=== PATIENT | female | born 1995 | race Caucasian/White ===

== ENCOUNTER 2016-10-11 09:20 | Emergency (ER) | payer OTHER, BC ==
[~2016-10-11] VITALS: Ht 167.6 cm; Wt 88.5 kg
[~2016-10-11 09:20] MED LIST: ONDA4TAB10 PO; PANT20TA58 PO
[2016-10-11 09:28] VITALS: BP 167/93
[2016-10-11] MEDS ORDERED: TETANUS AND DIPHTHERIA TOX/PF 0.5 ML VIAL. VAX IM ONE (09:30)
--- NOTE | 2016-10-11 09:30 | PHYS DOC ---
Past History Past Medical History: No Pertinent History, GERD, Other Past Surgical History: Appendectomy, Other Smoking: Non-smoker Alcohol Use: None Drug Use: None Adult General HPI HPI This 20-year-old lady presents to history of having suffered a dog bite on the right arm. It was a provoked attack and that it was an aggressive dog and the muscle came off. She presents now with about a 1 inch horizontal laceration on the right arm -- right mid forearm. She complains of no numbness or tingling or loss of motor strength. No other injuries Review of Systems Review of Systems Constitutional: Denies fever or chills [] Eyes: Denies change in visual acuity, redness, or eye pain [] HENT: Denies nasal congestion or sore throat [] Respiratory: Denies cough or shortness of breath [] Cardiovascular: No additional information not addressed in HPI [] GI: Denies abdominal pain, nausea, vomiting, bloody stools or diarrhea [] : Denies dysuria or hematuria [] Musculoskeletal: Denies back pain or joint pain laceration to the mid right forearm measuring about 2 cm it goes across the forearm. In a horizontal fashion Integument: Denies rash however there is a laceration of the right forearm measuring about 1 inch or 2 cm Neurologic: Denies headache, focal weakness or sensory changes [] Endocrine: Denies polyuria or polydipsia [] Allergies Allergies Allergies Coded Allergies Type Severity Reaction Last Updated Verified morphine Allergy Severe Itching 10/11/15 Yes cefaclor Allergy Intermediate 12/03/14 Yes sulfur Allergy Intermediate 12/03/14 Yes Physical Exam Physical Exam Constitutional: Well developed, well nourished, no acute distress, non-toxic appearance. [] HENT: Normocephalic, atraumatic, bilateral external ears normal, oropharynx moist, no oral exudates, nose normal. [] Eyes: PERRLA, EOMI, conjunctiva normal, no discharge. [] Neck: Normal range of motion, no tenderness, supple, no stridor. [] Cardiovascular:Heart rate regular rhythm, no murmur [] Lungs & Thorax: Bilateral breath sounds clear to auscultation [] Abdomen: Bowel sounds normal, soft, no tenderness, no masses, no pulsatile masses. [] Skin: Warm, dry, no erythema, no rash. There is a laceration of the right mid forearm measuring about 2 cm. There is fat protruding from the wound. Patient has good distal neurovascular function good Sensation Back: No tenderness, no CVA tenderness. [] Extremities: No tenderness, no cyanosis, no clubbing, ROM intact, no edema. [] Neurologic: Alert and oriented X 3, normal motor function, normal sensory function, no focal deficits noted. [] Psychologic: Affect normal, judgement normal, mood normal. [] EKG EKG [] Radiology/Procedures Radiology/Procedures 1% lidocaine was locally locally infiltrated into around the dog bite of the right forearm . The laceration was then cleansed thoroughly irrigated somewhat then the laceration was loosely closed using 2 4-0 nylon sutures [] an Stepan wrap was placed in the forearm and hand and she was instructed to keep her arm elevated Impressions: 2 cm laceration of the right forearm secondary to dog bite Course & Med Decision Making Course & Med Decision Making The patient was placed on Augmentin 875 mg by mouth twice a day [] Dragon Disclaimer Dragon Disclaimer This chart was dictated in whole or in part using Voice Recognition software in a busy, high-work load, and often noisy Emergency Department environment. It may contain unintended and wholly unrecognized errors or omissions. Departure Departure: Referrals: YEHUDA ESCOBAR (PCP) Scripts Amoxicillin/Potassium Clav (AUGMENTIN 875-125 TABLET) 1 Each Tablet 1 TAB PO BID, #14 TAB Prov: PETAR PRADO MD 10/11/16 PETAR PRADO MD Oct 11, 2016 09:30
[2016-10-11] MEDS ORDERED: LIDOCAINE 1% Multi-Dose 20 ML VIAL. IJ ONE (10:00)
[2016-10-11] MEDS ORDERED: DIPHTH,PERTUSS(ACELL),TET TOX 0.5 ML DISP.SYRIN. VAX IM ONE (10:00)
[2016-10-11] MEDS ORDERED: AMOX1TAB61 PO (10:09)
[2016-10-11] MEDS ORDERED: AMOXICILLIN/K CLAV 875/125MG TABLET. PO ONE (10:20)
== END 2016-10-11 10:15 | disposition home or self-care (01) ==
LOC: ER 09:20
DX: S51.811A Laceration without foreign body of right forearm, initial encounter (principal); Z88.5 Allergy status to narcotic agent; Z88.1 Allergy status to other antibiotic agents; Z88.2 Allergy status to sulfonamides; W54.0XXA Bitten by dog, initial encounter; Y93.89 Activity, other specified; Y99.8 Other external cause status; Y92.89 Other specified places as the place of occurrence of the external cause
CPT/HCPCS: 12001; 90471; 90715; 99283-25

== ENCOUNTER → 2016-12-01 | Outpatient (CLI) | payer BC, OTHER ==
[~2016-12-01] MED LIST changes: +AMOX1TAB61 PO
--- NOTE | 2016-12-01 15:11 | RAD ---
Indication right hip pain for 2 months. No history of injury. AP view of the pelvis was obtained as well as a crosstable lateral view of the right hip. No acute or significant bony finding is seen. Significant degenerative changes are not apparent on plain films.
== END | disposition home or self-care (01) ==
LOC: DXRADRC 14:56
PROVIDERS: ATTEND Family Medicine
DX: M25.551 Pain in right hip (principal)
CPT/HCPCS: 73501

== ENCOUNTER 2017-03-09 08:09 | Emergency (ER) | payer BC ==
[~2017-03-09] VITALS: Ht 167.6 cm; Wt 89.1 kg
[2017-03-09] MEDS ORDERED: methylPREDNISolone SOD SUCC PF 40 MG/ML VIAL. IM ONE (08:45)
[2017-03-09 08:47] VITALS: BP 130/72
[2017-03-09] MEDS ORDERED: PRED-220 PO (08:52)
--- NOTE | 2017-03-09 08:52 | PHYS DOC ---
Past History Past Medical History: Other Past Surgical History: Appendectomy Smoking: Non-smoker Alcohol Use: None Drug Use: None Adult General Chief Complaint Chief Complaint: SKIN PROBLEM HPI HPI Patient is a 22 year old F who presents with itching that started last night and a hive-like rash that started this morning. She has no history of anaphylaxis and no exposure that she knows of to anything that may have precipitated an allergic reaction. She denies chest pain or shortness of breath. She does feel like she has a "funny feeling in her throat". She did recently have an ear infection which was treated with Augmentin. She finished her 7 day prescription yesterday. Review of Systems Review of Systems Constitutional: Denies fever or chills [] Eyes: Denies change in visual acuity, redness, or eye pain [] HENT: Denies nasal congestion or sore throat [] Respiratory: Denies cough or shortness of breath [] Cardiovascular: No additional information not addressed in HPI [] GI: Denies abdominal pain, nausea, vomiting, bloody stools or diarrhea [] : Denies dysuria or hematuria [] Musculoskeletal: Denies back pain or joint pain [] Integument: Negative except history of present illness Neurologic: Denies headache, focal weakness or sensory changes [] Endocrine: Denies polyuria or polydipsia [] All other systems were reviewed and found to be within normal limits, except as documented in this note. Family History Family History Noncontributory Current Medications Current Medications Medications reviewed Current Medications Medications (Trade) Dose Ordered Sig/[facility] Start Time Stop Time Status Last Admin Dose Admin Methylprednisolone Sodium Succinate (SOLU-Medrol 40MG VIAL) 60 mg 1X ONCE 03/09/17 08:45 03/09/17 08:46 DC 03/09/17 08:28 60 MG Allergies Allergies Allergies Coded Allergies Type Severity Reaction Last Updated Verified morphine Allergy Severe Itching 10/11/15 Yes cefaclor Allergy Intermediate 12/03/14 Yes sulfur Allergy Intermediate 12/03/14 Yes Physical Exam Physical Exam Constitutional: Well developed, well nourished, no acute distress, non-toxic appearance. [] HENT: Normocephalic, atraumatic Eyes: EOMI, conjunctiva normal, no discharge. [] Oral pharynx appears to have mild erythema without swelling or obvious obstruction. Nasal mucosa appears erythematous without edema. Neck: Normal range of motion, no tenderness, supple, no stridor. [] Cardiovascular:Heart rate regular rhythm, no murmur [] Lungs & Thorax: Bilateral breath sounds clear to auscultation [] Abdomen: Bowel sounds normal, soft, no tenderness, no masses, no pulsatile masses. Skin: Hives noted sporadically on the upper extremities, neck, and ears bilaterally Extremities: No tenderness, no cyanosis, no clubbing, ROM intact, no edema. [] Neurologic: Alert and oriented X 3, normal motor function, normal sensory function, no focal deficits noted. [] Psychologic: Affect normal, judgement normal, mood normal. [] Current Patient Data Vital Signs Vital Signs Date Time Temp Pulse Resp B/P (MAP) Pulse Ox O2 Delivery O2 Flow Rate FiO2 03/09/17 08:47 85 22 130/72 (91) 98 Room Air 03/09/17 08:20 98.6 EKG EKG [] Radiology/Procedures Radiology/Procedures [] Course & Med Decision Making Course & Med Decision Making Pertinent Labs and Imaging studies reviewed. (See chart for details) [] Dragon Disclaimer Dragon Disclaimer This electronic medical record was generated, in whole or in part, using a voice recognition dictation system. Departure Departure: Impression: Primary Impression: Hives Disposition: 01 HOME, SELF-CARE Condition: STABLE Referrals: YEHUDA ESCOBAR (PCP) Patient Instructions: Hives Additional Instructions: Octavia was seen in the emergency department for rash. No emergency medical condition was found on history or physical exam. Her symptoms are most consistent with hives without anaphylaxis. She was given steroids in the emergency room as well as a prescription. Education was provided regarding anaphylaxis including the potential for a second peak of symptoms. She was advised return the emergency room immediately if she develops respiratory symptoms. She is also advised follow-up with her primary care doctor as soon as possible for further management. Scripts Prednisone (PREDNISONE) 10 Mg Tablet 10 MG PO DAILY for 5 Days, #5 TAB Prov: CHAVEZ WELLINGTON MD 03/09/17 CHAVEZ WELLINGTON MD Mar 09, 2017 08:52
== END 2017-03-09 08:58 | disposition home or self-care (01) ==
LOC: ER 08:09
DX: L50.9 Urticaria, unspecified (principal); Z88.5 Allergy status to narcotic agent; Z88.1 Allergy status to other antibiotic agents; Z88.2 Allergy status to sulfonamides
CPT/HCPCS: 96372; 99283; J2920

== ENCOUNTER 2017-06-09 19:41 | Emergency (ER) | payer BC ==
[~2017-06-09] VITALS: Ht 167.6 cm; Wt 99.8 kg
[~2017-06-09 19:41] MED LIST changes: +PRED-220 PO
[2017-06-09] MEDS ORDERED: ONDANSETRON PF 4 MG/2 ML VIAL. IV ONE (21:45)
[2017-06-09] MEDS ORDERED: IV NORMAL SALINE 1,000ML 1,000 ML IV SCH (21:45)
[2017-06-09] MEDS ORDERED: FAMOTIDINE 20 MG/2 ML VIAL IVP ONE (21:45)
[2017-06-09 22:20] LABS: BASO # 0.1 x10^3/uL (0.0-0.2); BASO % 1 % (0-3); EOS # 0.1 x10^3/uL (0.0-0.7); EOS % 1 % (0-3); HEMOGLOBIN 12.3 g/dL (12.0-15.5); LYMPH # 3.2 x10^3/uL (1.0-4.8); LYMPH % 26 % (24-48); MEAN CORPUSCULAR HEMOGLOBIN 26 pg (25-35); MEAN CORPUSCULAR HGB CONC 32 g/dL (31-37); MEAN CORPUSCULAR VOLUME 79 fL (79-100); MONO # 0.9 x10^3/uL (0.0-1.1); MONO % 7 % (0-9); NEUT # 7.9 x10^3uL (1.8-7.7); NEUT % 64 % (31-73); PLATELET COUNT 267 x10^3/uL (140-400); RED CELL DISTRIBUTION WIDTH 16.2 % (11.5-14.5); WHITE BLOOD COUNT 12.2 x10^3/uL (4.0-11.0)
[2017-06-09] MEDS ORDERED: DICYCLOMINE 20 MG/2 ML AMPUL. IM ONE (22:30)
[2017-06-09 22:31] LABS: ALBUMIN 3.4 g/dL (3.4-5.0); ALBUMIN/GLOBULIN RATIO 0.8 (1.0-1.7); CALCIUM 9.2 mg/dL (8.5-10.1); CREATININE 0.9 mg/dL (0.6-1.0); GFR 76.9; POTASSIUM 3.8 mmol/L (3.5-5.1); TOTAL BILIRUBIN 0.2 mg/dL (0.2-1.0); TOTAL PROTEIN 7.6 g/dL (6.4-8.2)
[2017-06-09 22:42] LABS: BILIRUBIN,URINE NEG (NEG); CLARITY,URINE HAZY; COLOR,URINE YELLOW; GLUCOSE,URINE NEG (NEG); NITRITE,URINE NEG (NEG); UROBILINOGEN,URINE 0.2 mg/dL (0.2 mg/dL)
[2017-06-09 22:43] LABS: BACTERIA,URINE FEW /HPF (0-FEW); SQUAMOUS EPITHELIAL CELL,UR MANY /LPF
[2017-06-09 22:52] LABS: FECAL OB PT POSITIVE (NEG)
--- NOTE | 2017-06-09 23:56 | PHYS DOC ---
Past History Past Medical History: GERD, IBS, Other Past Surgical History: Appendectomy Smoking: Non-smoker Alcohol Use: None Drug Use: None Adult General Chief Complaint Chief Complaint: ABDOMINAL PAIN HPI HPI Patient is a 22 year old female who presents with complaint of abdominal pain and dark stools. Patient states that her symptoms started suddenly this evening. Over the last 2-3 hours patient has had multiple stools and states that she has been passing black stool. Patient states that she has history of GERD, IBS, and peptic ulcer disease. The patient states that her symptoms started out as typical IBS symptoms, however the patient states that after having a bowel movement the symptoms did not get any better. Patient states that she is having intermittent severe cramping abdominal pain which she describes diffusely. Patient states that her stools have appeared "dark." Patient is concerned that she may be passing blood. Patient denies lightheadedness or fever. Patient rates her pain on my evaluation as 7 out of 10 but states that it fluctuates and has been 10 out of 10. Frequently since onset of symptoms. Patient has not taken any medications to help with her symptoms at this time. Review of Systems Review of Systems Constitutional: Denies fever or chills [] Eyes: Denies change in visual acuity, redness, or eye pain [] HENT: Denies nasal congestion or sore throat [] Respiratory: Denies cough or shortness of breath [] Cardiovascular: Denies chest pain or edema[] GI: Abdominal pain, nausea, dark stools[] : Denies dysuria or hematuria [] Musculoskeletal: Denies back pain or joint pain [] Integument: Denies rash or skin lesions [] Neurologic: Denies headache, focal weakness or sensory changes [] All other systems were reviewed and found to be within normal limits, except as documented in this note. Current Medications Current Medications Current Medications Medications (Trade) Dose Ordered Sig/[facility] Start Time Stop Time Status Last Admin Dose Admin Dicyclomine HCl (Bentyl) 10 mg 1X ONCE 06/09/17 22:30 06/09/17 22:33 DC 06/09/17 22:42 10 MG Famotidine (Pepcid Vial) 20 mg 1X ONCE 06/09/17 21:45 06/09/17 21:46 DC 06/09/17 22:17 20 MG Fentanyl Citrate (Fentanyl 2ml Vial) 50 mcg PRN Q15MIN PRN 06/09/17 21:45 06/10/17 21:44 06/09/17 22:17 50 MCG Ondansetron HCl (Zofran) 4 mg 1X ONCE 06/09/17 21:45 06/09/17 21:46 DC 06/09/17 22:18 4 MG Sodium Chloride 1,000 ml @ 1,000 mls/hr Q1H 06/09/17 21:45 06/09/17 22:44 DC 06/09/17 21:45 1,000 MLS/HR Allergies Allergies Allergies Coded Allergies Type Severity Reaction Last Updated Verified morphine Allergy Severe Itching 10/11/15 Yes cefaclor Allergy Intermediate 12/03/14 Yes sulfur Allergy Intermediate 12/03/14 Yes Physical Exam Physical Exam Constitutional: Alert, afebrile, appears in moderate to severe discomfort.[] HENT: Normocephalic, atraumatic, bilateral external ears normal, oropharynx moist, no oral exudates, nose normal. [] Eyes: PERRLA, EOMI, conjunctiva normal, no discharge. [] Neck: Normal range of motion, no tenderness, supple, no stridor. [] Cardiovascular:Heart rate regular rhythm, no murmur [] Lungs & Thorax: Bilateral breath sounds clear to auscultation [] Abdomen: Bowel sounds hyperactive, soft, diffusely tender in all 4 quadrants, no masses, no pulsatile masses. Skin: Warm, dry, no erythema, no rash. [] Back: No tenderness, no CVA tenderness. [] Extremities: No tenderness, no cyanosis, no clubbing, ROM intact, no edema. [] Neurologic: Alert and oriented X 3, normal motor function, normal sensory function, no focal deficits noted. [] Current Patient Data Vital Signs Vital Signs Date Time Temp Pulse Resp B/P (MAP) Pulse Ox O2 Delivery O2 Flow Rate FiO2 06/09/17 22:47 97 19 135/70 (91) 100 Room Air 06/09/17 20:10 98.1 Lab Results Laboratory Tests Test 06/09/17 21:41 06/09/17 21:45 06/09/17 21:57 06/09/17 22:04 Stool Occult Blood Positive (NEG) Urine Collection Type Unknown Urine Color Yellow Urine Clarity Hazy Urine pH 6.0 Urine Specific [place] 1.025 Urine Protein Neg (NEG-TRACE) Urine Glucose (UA) Neg mg/dL (NEG) Urine Ketones (Stick) Neg mg/dL (NEG) Urine Blood Neg (NEG) Urine Nitrite Neg (NEG) Urine Bilirubin Neg (NEG) Urine Urobilinogen Dipstick 0.2 mg/dL (0.2 mg/dL) Urine Leukocyte Esterase Neg (NEG) Urine RBC 1-2 /HPF (0-2) Urine WBC 1-4 /HPF (0-4) Urine Squamous Epithelial Cells Many /LPF Urine Bacteria Few /HPF (0-FEW) Urine Mucus Mod /LPF White Blood Count 12.2 x10^3/uL (4.0-11.0) H Red Blood Count 4.80 x10^6/uL (3.50-5.40) Hemoglobin 12.3 g/dL (12.0-15.5) Hematocrit 38.0 % (36.0-47.0) Mean Corpuscular Volume 79 fL (79-100) Mean Corpuscular Hemoglobin 26 pg (25-35) Mean Corpuscular Hemoglobin Concent 32 g/dL (31-37) Red Cell Distribution Width 16.2 % (11.5-14.5) H Platelet Count 267 x10^3/uL (140-400) Neutrophils (%) (Auto) 64 % (31-73) Lymphocytes (%) (Auto) 26 % (24-48) Monocytes (%) (Auto) 7 % (0-9) Eosinophils (%) (Auto) 1 % (0-3) Basophils (%) (Auto) 1 % (0-3) Neutrophils # (Auto) 7.9 x10^3uL (1.8-7.7) H Lymphocytes # (Auto) 3.2 x10^3/uL (1.0-4.8) Monocytes # (Auto) 0.9 x10^3/uL (0.0-1.1) Eosinophils # (Auto) 0.1 x10^3/uL (0.0-0.7) Basophils # (Auto) 0.1 x10^3/uL (0.0-0.2) Sodium Level 140 mmol/L (136-145) Potassium Level 3.8 mmol/L (3.5-5.1) Chloride Level 104 mmol/L (98-107) Carbon Dioxide Level 26 mmol/L (21-32) Anion Gap 10 (6-14) Blood Urea Nitrogen 10 mg/dL (7-20) Creatinine 0.9 mg/dL (0.6-1.0) Estimated GFR (Cockcroft-Gault) 76.9 BUN/Creatinine Ratio 11 (6-20) Glucose Level 78 mg/dL (70-99) Calcium Level 9.2 mg/dL (8.5-10.1) Total Bilirubin 0.2 mg/dL (0.2-1.0) Aspartate Amino Transferase (AST) 21 U/L (15-37) Alanine Aminotransferase (ALT) 21 U/L (14-59) Alkaline Phosphatase 84 U/L (46-116) Total Protein 7.6 g/dL (6.4-8.2) Albumin 3.4 g/dL (3.4-5.0) Albumin/Globulin Ratio 0.8 (1.0-1.7) L Lipase 87 U/L (73-393) POC Urine HCG, Qualitative hcg negative (Negative) EKG EKG Not performed[] Radiology/Procedures Radiology/Procedures 3 view acute abdominal series interpreted by me: Nonobstructive bowel gas pattern, no free air under the diaphragm, no pulmonary infiltrates or effusions[ ] Course & Med Decision Making Course & Med Decision Making Pertinent Labs and Imaging studies reviewed. (See chart for details) The patient was given IV fluids, fentanyl, Zofran, and Bentyl. Despite treatment , the patient continues to have severe abdominal pain. Of concern, the patient has guaiac positive stools and with patient's history of peptic ulcer disease, upper GI bleeding cannot be ruled out at this time. The patient will need admission for further control symptoms and further evaluation of GI bleeding. The patient requested transfer to [facility] for inpatient care. I contacted the transfer line at [facility] and spoke with Dr. Sandy who accepted care of patient for transfer. The patient will be transferred by ground EMS. Spoke with patient and patient's mother regarding plan of care and they were in agreement at time of disposition. Dragon Disclaimer Dragon Disclaimer This electronic medical record was generated, in whole or in part, using a voice recognition dictation system. Departure Departure: Impression: Primary Impression: GI bleeding Additional Impression: Intractable abdominal pain Disposition: XFER SHT-TRM HOSP Condition: STABLE Referrals: YEHUDA ESCOBAR (PCP) Problem Qualifiers Primary Impression: GI bleeding GI bleed type/associated pathology: unspecified gastrointestinal hemorrhage type Qualified Codes: K92.2 - Gastrointestinal hemorrhage, unspecified CONCHITA BURNHAM MD Jun 09, 2017 23:56
[2017-06-10 01:10] VITALS: BP 138/71
[2017-06-10] MEDS ORDERED: ONDANSETRON PF 4 MG/2 ML VIAL. IV ONE (01:30)
--- NOTE | 2017-06-10 07:52 | RAD ---
Single view chest and supine and upright AP views abdomen 06/09/2017 Clinical indication: Abdominal pain. Comparison: Chest 02/23/2014, CT abdomen and pelvis 10/27/2012 and radiographs 10/26/2012. Findings: Cardiac and mediastinal silhouettes are unremarkable. No pleural effusion, pneumothorax or focal consolidation. There is a nonobstructive bowel gas pattern. No evidence of pneumoperitoneum or portal venous gas. Impression: 1. No acute cardiopulmonary abnormality. 2. No radiographic evidence of bowel obstruction or pneumoperitoneum.
== END 2017-06-10 02:01 | disposition short-term general hospital (02) ==
LOC: ER 19:41
DX: K92.2 Gastrointestinal hemorrhage, unspecified (principal); K21.9 Gastro-esophageal reflux disease without esophagitis; K58.9 Irritable bowel syndrome, unspecified; Z87.11 Personal history of peptic ulcer disease; Z90.49 Acquired absence of other specified parts of digestive tract; Z88.1 Allergy status to other antibiotic agents; Z88.2 Allergy status to sulfonamides; Z88.5 Allergy status to narcotic agent
CPT/HCPCS: 36415; 74022; 80053; 81001; 81025; 82274; 83690; 85025; 96361; 96372; 96374; 96375; 96376; 99285; J0500; J2405; J3010; S0028; J7030

== ENCOUNTER → 2017-11-02 | Outpatient (CLI) | payer BC ==
--- NOTE | 2017-11-02 15:47 | RAD ---
Five-view lumbar spine dated 11/02/2017. No comparison available. Clinical data indication: Low back pain. FINDINGS: AP, lateral, bilateral black and coned-down views of lumbosacral junction obtained. Sagittal alignment is anatomic. Vertebral body heights are maintained. Posterior elements are intact. No evidence of fracture. Minimal endplate hypertrophic changes with mild arthrosis lower lumbar apophyseal joints. IMPRESSION: 1. No acute radiographic abnormality. 2. Mild lower lumbar spondylosis. Electronically signed by: Flako Padilla MD (11/02/2017 3:44 PM) [facility]
== END | disposition home or self-care (01) ==
LOC: PMG 15:06
PROVIDERS: ATTEND Physician Assistant Medical
DX: M47.896 Other spondylosis, lumbar region (principal); G43.909 Migraine, unspecified, not intractable, without status migrainosus; K21.9 Gastro-esophageal reflux disease without esophagitis
CPT/HCPCS: 72110

== ENCOUNTER 2018-03-17 12:50 | Emergency (ER) | payer BC ==
[~2018-03-17] VITALS: Ht 167.6 cm; Wt 99.3 kg
--- NOTE | 2018-03-17 13:26 | PHYS DOC ---
Past History Past Medical History: GERD, IBS, Other Past Surgical History: Appendectomy Smoking: Non-smoker Alcohol Use: Occasionally Drug Use: None Adult General Chief Complaint Chief Complaint: CHEST PAIN HPI HPI Patient is a 23 year old email] who presents with right-sided chest pain. This started approximately 90 minutes prior to arrival. There is respirophasic component to this. No worse with exertion. Some radiation into her neck. Some nausea blitz worse than her usual baseline nausea. Patient's long history of GI issues to include having a polyp recently removed on colonoscopy. No diaphoresis. Patient took ibuprofen this morning for an unrelated headache prior to the onset of this discomfort. No fevers, no cough. No travel. Patient is on control medication, nonsmoker, no travel, no trauma, no known hypercoagulable state[] Review of Systems Review of Systems Constitutional: Denies fever or chills [] Eyes: Denies change in visual acuity, redness, or eye pain [] HENT: Denies nasal congestion or sore throat [] Respiratory: Denies cough or shortness of breath [] Cardiovascular: No additional information not addressed in HPI [] GI: Denies abdominal pain, nausea, vomiting, bloody stools or diarrhea [] : Denies dysuria or hematuria [] Musculoskeletal: Denies back pain or joint pain [] Integument: Denies rash or skin lesions [] Neurologic: Denies headache, focal weakness or sensory changes [] Endocrine: Denies polyuria or polydipsia [] All other systems were reviewed and found to be within normal limits, except as documented in this note. Allergies Allergies Allergies Coded Allergies Type Severity Reaction Last Updated Verified morphine Allergy Severe Itching 03/17/18 Yes cefaclor Allergy Intermediate 03/17/18 Yes sulfur Allergy Intermediate 03/17/18 Yes Physical Exam Physical Exam Constitutional: Well developed, well nourished, no acute distress, non-toxic appearance. [] HENT: Normocephalic, atraumatic, bilateral external ears normal, oropharynx moist, no oral exudates, nose normal. [] Eyes: PERRLA, EOMI, conjunctiva normal, no discharge. [] Neck: Normal range of motion, no tenderness, supple, no stridor. [] Cardiovascular:Heart rate regular rhythm, no murmur Chest: No tenderness to palpation, no paradoxical motion, no crepitus[] Lungs & Thorax: Bilateral breath sounds clear to auscultation [] Abdomen: Bowel sounds normal, soft, no tenderness, no masses, no pulsatile masses. [] Skin: Warm, dry, no erythema, no rash. [] Back: No tenderness, no CVA tenderness. [] Extremities: No tenderness, no cyanosis, no clubbing, ROM intact, no edema. [] Neurologic: Alert and oriented X 3, normal motor function, normal sensory function, no focal deficits noted. [] Psychologic: Affect normal, judgement normal, mood normal. [] Current Patient Data Vital Signs Vital Signs Date Time Temp Pulse Resp B/P (MAP) Pulse Ox O2 Delivery O2 Flow Rate FiO2 03/17/18 12:50 98.0 86 18 100 Room Air EKG EKG EKG showed a sinus rhythm at 100 bpm, normal axis at 36, QTC at 439 ms, no ST elevations,[] Radiology/Procedures Radiology/Procedures Chest X-ray did not show any acute features CT angiography of the chest showed no pulmonary embolism, no other acute features[] Course & Med Decision Making Course & Med Decision Making Pertinent Labs and Imaging studies reviewed. (See chart for details) Medical decision making: No evidence of acute coronary syndrome, pneumonia, pneumothorax, nor esophageal rupture. Patient's d-dimer is elevated so CT scan of the chest is being obtained to rule out PE. Patient had no evidence of a PE on CT angiography of the chest ED course: Patient arrived, was placed in bed, in tolerated exam well. Patient did get some pain relief with the IV ketorolac. After the return of the lab and imaging findings, these were discussed with the patient, all questions were answered.[] Dragon Disclaimer Dragon Disclaimer This electronic medical record was generated, in whole or in part, using a voice recognition dictation system. Departure Departure: Impression: Primary Impression: Chest pain Disposition: 01 HOME, SELF-CARE Referrals: YEHUDA ESCOBAR (PCP) Follow-up in 2 days Patient Instructions: Chest Pain (Nonspecific) Additional Instructions: Follow-up with your regular doctor in 2 days. Return to the ER if worsening discomfort, difficulty breathing, or any other concerns. Scripts Tramadol Hcl (TRAMADOL HCL) 50 Mg Tablet 50 MG PO PRN Q6HRS PRN for PAIN, #20 TAB Prov: KEVON GANDARA DO 03/17/18 Meloxicam (MELOXICAM) 7.5 Mg Tablet 7.5 MG PO DAILY for PAIN, #20 TAB Prov: KEVON GANDARA DO 03/17/18 Problem Qualifiers Primary Impression: Chest pain Chest pain type: unspecified Qualified Codes: R07.9 - Chest pain, unspecified KEVON GANDARA DO Mar 17, 2018 13:26
[2018-03-17] MEDS ORDERED: ASPIRIN 81 MG TAB.CHEW PO ONE (13:30)
--- NOTE | 2018-03-17 13:50 | RAD ---
EXAM: Chest, single view. HISTORY: Chest pain. COMPARISON: 02/23/2014 FINDINGS: A single view of the chest is obtained. There is no infiltrate, pleural effusion or pneumothorax. The heart is normal in size. IMPRESSION: No acute pulmonary finding. Electronically signed by: Parul La MD (03/17/2018 1:46 PM) [facility] [place]
[2018-03-17 14:13] LABS: BASO % 0 % (0-3); EOS # 0.1 x10^3/uL (0.0-0.7); EOS % 2 % (0-3); HEMATOCRIT 38.2 % (36.0-47.0); HEMOGLOBIN 12.2 g/dL (12.0-15.5); LYMPH # 3.3 x10^3/uL (1.0-4.8); LYMPH % 39 % (24-48); MEAN CORPUSCULAR HEMOGLOBIN 26 pg (25-35); MEAN CORPUSCULAR HGB CONC 32 g/dL (31-37); MEAN CORPUSCULAR VOLUME 80 fL (79-100); MONO # 0.6 x10^3/uL (0.0-1.1); MONO % 8 % (0-9); NEUT # 4.4 x10^3uL (1.8-7.7); NEUT % 52 % (31-73); PLATELET COUNT 325 x10^3/uL (140-400); RED BLOOD COUNT 4.75 x10^6/uL (3.50-5.40); RED CELL DISTRIBUTION WIDTH 15.7 % (11.5-14.5); WHITE BLOOD COUNT 8.5 x10^3/uL (4.0-11.0)
[2018-03-17 14:21] LABS: PREG TEST PT QUAL NEGATIVE (NEG)
--- NOTE | 2018-03-17 14:26 | EKG ---
[address] [address] Test Date: 2018-03-17 Test Time: 13:36:23 Pat Name: ORTIZ JUAREZ Department: Room: Gender: F Construction Area Manager: : 1995 Requested By: KEVON GANDARA Order Number: [id number] Reading MD: Matthew Doll Measurements Intervals [place] Rate: 100 P: 36 MA: 154 QRS: 36 QRSD: 82 T: 15 QT: 338 QTc: 439 Interpretive Statements SINUS RHYTHM Electronically Signed On 03-20-2018 11:06:34 LEATHER LEVELER by Matthew Doll
[2018-03-17] MEDS ORDERED: KETOROLAC 30 MG/ML VIAL. IV ONE (14:30)
[2018-03-17 14:33] LABS: ALBUMIN 3.3 g/dL (3.4-5.0); ALBUMIN/GLOBULIN RATIO 0.8 (1.0-1.7); CALCIUM 8.9 mg/dL (8.5-10.1); CREATININE 0.8 mg/dL (0.6-1.0); GFR 87.4; POTASSIUM 3.6 mmol/L (3.5-5.1); TOTAL BILIRUBIN 0.1 mg/dL (0.2-1.0); TOTAL PROTEIN 7.3 g/dL (6.4-8.2)
[2018-03-17] MEDS ORDERED: IOHEXOL 300 MG/ML 75 ML VIAL. IV ONE (15:00)
--- NOTE | 2018-03-17 15:29 | RAD ---
CT ANGIOGRAPHY CHEST Indication: RT SIDED CHEST PAIN, ELEVATED D DIMER . Comparison: No comparison is available. Technique: After intravenous contrast administration, CT imaging was performed of the chest. MIP reconstructions were obtained. Exposure: One or more of the following individualized dose reduction techniques were utilized for this examination: 1. Automated exposure control 2. Adjustment of the mA and/or kV according to patient size 3. Use of iterative reconstruction technique. FINDINGS: Pulmonary arteries: No evidence of pulmonary embolism. Thoracic aorta: No evidence of aneurysm or dissection. Proximal great vessels are patent. Thyroid gland:Visualized aspect is unremarkable. Lymph nodes:No significant enlargement Heart: No significant pericadial effusion. Esophagus: Small hiatal hernia. Pleural spaces: No significant effusion Lungs: No dominant airspace consolidation or large mass. Trachea and central airways: Patent Bones: Osteolytic lesion within the T1 vertebral body, has an appearance most typical for benign hemangioma. Upper abdomen: Slices through the upper abdomen are limited due to the technique .No obvious acute findings. IMPRESSION: Negative for pulmonary embolism or acute thoracic abnormality. Electronically signed by: Flako Prather MD (03/17/2018 3:26 PM) [facility]
[2018-03-17] MEDS ORDERED: TRAM50TA PO (15:54)
[2018-03-17] MEDS ORDERED: MELO7.5T29 PO (15:54)
[2018-03-17 15:55] VITALS: BP 124/71
== END 2018-03-17 15:55 | disposition home or self-care (01) ==
LOC: ER 12:50
DX: R07.89 Other chest pain (principal); K21.9 Gastro-esophageal reflux disease without esophagitis; K58.9 Irritable bowel syndrome, unspecified; Z88.5 Allergy status to narcotic agent; Z88.1 Allergy status to other antibiotic agents; Z88.2 Allergy status to sulfonamides
CPT/HCPCS: 36415; 71045; 71275; 80053; 83690; 83735; 83880; 84484; 84703; 85025; 85379; 85610; 93005; 96374; 99284; J1885; Q9967

== ENCOUNTER 2018-04-22 19:41 | Emergency (ER) | payer BC ==
[~2018-04-22] VITALS: Ht 167.6 cm; Wt 93.0 kg
[~2018-04-22 19:41] MED LIST changes: +MELO7.5T29 PO; +TRAM50TA PO
--- NOTE | 2018-04-22 20:14 | PHYS DOC ---
Past History Past Medical History: GERD, IBS, Other Past Surgical History: Appendectomy Smoking: Non-smoker Alcohol Use: Occasionally Drug Use: None Adult General Chief Complaint Chief Complaint: ABDOMINAL PAIN HPI HPI 23-year-old female with past medical history of IBS and gastritis/ulcers presents with report of sharp upper abdominal pain which started this morning upon waking at approximately 0630. Patient reports pain has become worse throughout the day primarily to epigastrium/right upper quadrant with some radiation to right flank. Denies dysuria or hematuria. Reports some associated nausea. Patient also reports some shakiness which started at 1700. Patient also noted fever prior to arrival MAXIMUM TEMPERATURE 101.4. Patient reports taking a leftover hydrocodone 5/325 mg at 1530. Patient also reports taking some Zofran , promethazine, Protonix, and Zantac earlier today. Denies known sick contacts. Denies trauma. Denies . Reports last menstrual period was one week ago. She also reports history of prior appendectomy. Patient reports family history of gallbladder disease. Review of Systems Review of Systems Constitutional: Reports fever or chills [] HENT: Denies nasal congestion or sore throat [] Respiratory: Denies cough or shortness of breath [] Cardiovascular: Denies chest pain or palpitations GI: Reports abdominal pain and nausea; denies vomiting or diarrhea [] : Denies dysuria or hematuria [] Musculoskeletal: Reports right sided back pain Integument: Denies rash or skin lesions [] Neurologic: Denies headache or weakness Complete systems were reviewed and found to be within normal limits, except as documented in this note. Current Medications Current Medications Current Medications Medications (Trade) Dose Ordered Sig/Rafael Start Time Stop Time Status Last Admin Dose Admin Acetaminophen (Tylenol) 500 mg 1X ONCE 04/22/18 20:30 04/22/18 20:31 Famotidine (Pepcid Vial) 20 mg 1X ONCE 04/22/18 20:30 04/22/18 20:31 Ondansetron HCl (Zofran) 4 mg 1X ONCE 04/22/18 20:30 04/22/18 20:31 Sodium Chloride 1,000 ml @ 1,000 mls/hr 1X ONCE 04/22/18 20:30 04/22/18 21:29 Allergies Allergies Allergies Coded Allergies Type Severity Reaction Last Updated Verified morphine Allergy Severe Itching 03/17/18 Yes cefaclor Allergy Intermediate 03/17/18 Yes sulfur Allergy Intermediate 03/17/18 Yes Physical Exam Physical Exam Constitutional: Well developed, well nourished, appears uncomfortable and anxious, non-toxic appearance. [] HENT: Normocephalic, atraumatic, oropharynx moist Eyes: Conjunctiva normal, no discharge. [] Neck: Normal range of motion, supple Cardiovascular: Tachycardia with regular rhythm, no murmur [] Lungs & Thorax: Bilateral breath sounds clear to auscultation [] Abdomen: Soft, + Bishop's sign, RUQ and epigastric tenderness, no rebound, no distention Skin: Warm, dry, no erythema, no rash. [] Back: No tenderness, no CVA tenderness. [] Extremities: No tenderness, no edema. [] Neurologic: Alert and oriented X 3, no focal deficits noted. [] Psychologic: Anxious, judgement normal Current Patient Data Vital Signs Vital Signs Date Time Temp Pulse Resp B/P (MAP) Pulse Ox O2 Delivery O2 Flow Rate FiO2 04/22/18 19:48 102.0 133 20 100 Room Air EKG EKG [] Radiology/Procedures Radiology/Procedures PROCEDURE: ABDOMEN LTD Right upper quadrant abdominal ultrasound, 04/22/2018: HISTORY: Right upper quadrant pain, fever, nausea and vomiting The gallbladder is at the upper limits of normal in size. No gallstones are identified. The gallbladder wall is not thickened. The common hepatic duct measures 5 mm. There is no evidence of a hepatic mass or intrahepatic bile duct dilatation. The pancreas was obscured by overlying bowel. The visualized portions of the right kidney are unremarkable. IMPRESSION: Mild gallbladder distention without evidence of cholelithiasis. Electronically signed by: Denzel Johnson MD (04/22/2018 10:30 PM) [facility] Course & Med Decision Making Course & Med Decision Making Pertinent Labs and Imaging studies reviewed. (See chart for details) Nontoxic patient with significant GI history of IBS and gastritis/ulcers presents with 1 day history of upper abdominal pain primarily to RUQ and epigastric area with associated nausea and fever. Fever, pain, and nausea addressed. IVF hydration given. Labs obtained and posted to chart. UA without acute signs of infection. (some contamination noted) LFT/lipase WNL. Abdominal US without acute signs of cholecystitis or cholelithiasis. Nonspecific gallbladder distention noted. Additionally, no hydronephrosis noted. Patient stable for discharge with outpatient follow-up with PCP/GI specialist. Advised may need PIPIDA or HIDA scan with GI. Cannot exclude viral etiology. Discussed findings and plan with patient and family, who acknowledge understanding and agreement. Dragon Disclaimer Dragon Disclaimer This electronic medical record was generated, in whole or in part, using a voice recognition dictation system. Departure Departure: Impression: Primary Impression: Abdominal pain Additional Impression: Fever Disposition: HOME, SELF-CARE Condition: STABLE Referrals: YEHUDA ESCOBAR (PCP) BETH MIDDLETON MD Patient Instructions: Abdominal Pain (Nonspecific), Fever, Adult, [id number] Scripts Hydrocodone Bit/Acetaminophen (NORCO 5-325 TABLET) 1 Each Tablet 1 TAB PO Q6HRS PRN for PAIN, #10 TAB 0 Refills Prov: SHAJI COLLADO DO 04/22/18 Problem Qualifiers Primary Impression: Abdominal pain Abdominal location: right upper quadrant Qualified Codes: R10.11 - Right upper quadrant pain Additional Impression: Fever Fever type: unspecified Qualified Codes: R50.9 - Fever, unspecified SHAJI COLLADO DO Apr 22, 2018 20:14
[2018-04-22 20:27] LABS: BASO % 0 % (0-3); EOS # 0.1 x10^3/uL (0.0-0.7); EOS % 1 % (0-3); HEMATOCRIT 37.4 % (36.0-47.0); HEMOGLOBIN 12.2 g/dL (12.0-15.5); LYMPH % 11 % (24-48); MEAN CORPUSCULAR HEMOGLOBIN 26 pg (25-35); MEAN CORPUSCULAR HGB CONC 33 g/dL (31-37); MEAN CORPUSCULAR VOLUME 80 fL (79-100); MONO # 0.5 x10^3/uL (0.0-1.1); MONO % 6 % (0-9); NEUT # 7.1 x10^3uL (1.8-7.7); NEUT % 82 % (31-73); PLATELET COUNT 226 x10^3/uL (140-400); RED BLOOD COUNT 4.66 x10^6/uL (3.50-5.40); RED CELL DISTRIBUTION WIDTH 14.5 % (11.5-14.5); WHITE BLOOD COUNT 8.7 x10^3/uL (4.0-11.0)
[2018-04-22] MEDS ORDERED: KETOROLAC 15 MG/ML VIAL. IV ONE (20:30)
[2018-04-22] MEDS ORDERED: ACETAMINOPHEN 500 MG TABLET PO ONE (20:30)
[2018-04-22] MEDS ORDERED: ONDANSETRON PF 4 MG/2 ML VIAL. IV ONE ×2 (20:30→22:45)
[2018-04-22] MEDS ORDERED: FAMOTIDINE 20 MG/2 ML VIAL IVP ONE (20:30)
[2018-04-22] MEDS ORDERED: IV NORMAL SALINE 1,000ML 1,000 ML IV ONE (20:30)
[2018-04-22 20:38] LABS: ALBUMIN 3.2 g/dL (3.4-5.0); ALBUMIN/GLOBULIN RATIO 0.9 (1.0-1.7); CALCIUM 8.5 mg/dL (8.5-10.1); GFR 67.6; MAGNESIUM 1.5 mg/dL (1.8-2.4); POTASSIUM 3.7 mmol/L (3.5-5.1); TOTAL BILIRUBIN 0.3 mg/dL (0.2-1.0); TOTAL PROTEIN 6.9 g/dL (6.4-8.2)
[2018-04-22 20:49] LABS: BACTERIA,URINE FEW /HPF (0-FEW); BILIRUBIN,URINE NEG (NEG); CLARITY,URINE CLEAR; COLOR,URINE YELLOW; GLUCOSE,URINE NEG (NEG); NITRITE,URINE NEG (NEG); RBC,URINE 0 /HPF (0-2); SQUAMOUS EPITHELIAL CELL,UR MOD /LPF; UROBILINOGEN,URINE 0.2 mg/dL (0.2 mg/dL)
[2018-04-22] MEDS ORDERED: MAGNESIUM SULFATE 2GM 50 ML IV ONE (21:00)
--- NOTE | 2018-04-22 22:34 | RAD ---
Right upper quadrant abdominal ultrasound, 04/22/2018: HISTORY: Right upper quadrant pain, fever, nausea and vomiting The gallbladder is at the upper limits of normal in size. No gallstones are identified. The gallbladder wall is not thickened. The common hepatic duct measures 5 mm. There is no evidence of a hepatic mass or intrahepatic bile duct dilatation. The pancreas was obscured by overlying bowel. The visualized portions of the right kidney are unremarkable. IMPRESSION: Mild gallbladder distention without evidence of cholelithiasis. Electronically signed by: Denzel Johnson MD (04/22/2018 10:30 PM) [facility]
[2018-04-22] MEDS ORDERED: HYDR-3165 PO (22:58)
[2018-04-22 23:08] VITALS: BP 120/65
[2018-04-22] MEDS ORDERED: diphenhydrAMINE 50 MG/ML VIAL IVP ONE (23:45)
[2018-04-22] MEDS ORDERED: METOCLOPRAMIDE HCL 10 MG/2 ML VIAL. IV ONE (23:45)
[2018-04-23] MEDS ORDERED: ONDANSETRON PF 4 MG/2 ML VIAL. IV ONE
== END 2018-04-22 23:59 | disposition home or self-care (01) ==
LOC: ER 19:41
DX: R10.11 Right upper quadrant pain (principal); R50.9 Fever, unspecified; R11.0 Nausea; M54.89 Other dorsalgia; R10.13 Epigastric pain; K21.9 Gastro-esophageal reflux disease without esophagitis; K58.9 Irritable bowel syndrome, unspecified; Z90.89 Acquired absence of other organs; Z88.5 Allergy status to narcotic agent; Z88.2 Allergy status to sulfonamides; Z88.1 Allergy status to other antibiotic agents
CPT/HCPCS: 36415; 76705; 80053; 81001; 81025; 83690; 83735; 85025; 96365; 96375; 96376; 99284; J1885; J2405; J3010; J3475; J3490; J7030

== ENCOUNTER → 2018-06-06 | Outpatient (CLI) | payer BC ==
[~2018-06-06] VITALS: Ht 170.2 cm; Wt 102.1 kg
[~2018-06-06] MED LIST changes: +HYDR-3165 PO; +NORMAL SALINE IV ONE; +SINCALIDE IV ONE
--- NOTE | 2018-06-06 11:11 | RAD ---
Radionuclide hepatobiliary scan with gallbladder ejection fraction, 06/06/2018: HISTORY: Abdominal pain x2 months Following IV injection of 5.5 mCi of technetium 99m Choletec there was prompt uptake of the radionuclide from the blood stream by the liver. Activity is present in the gallbladder and bile ducts at 10 minutes. Small bowel activity developed at 30 minutes. Additional imaging was then performed following IV injection of 2.1 mcg of cholecystokinin. The gallbladder ejection fraction was calculated at 50 percent. IMPRESSION: 1. Normal radionuclide hepatobiliary scan. 2. The gallbladder ejection fraction is 50 percent. Electronically signed by: Denzel Johnson MD (06/06/2018 11:08 AM) [facility]
== END | disposition home or self-care (01) ==
LOC: NM 08:55
PROVIDERS: ATTEND Physician Assistant Medical
DX: R93.2 Abnormal findings on diagnostic imaging of liver and biliary tract (principal)
CPT/HCPCS: 78227; A9537; J2805

== ENCOUNTER → 2018-09-29 | Outpatient (CLI) | payer BC ==
[~2018-09-29] MED LIST changes: -NORMAL SALINE IV ONE; -SINCALIDE IV ONE
--- NOTE | 2018-09-29 16:10 | RAD ---
EXAM: CHEST 2 VIEWS. HISTORY: Productive cough for 2 weeks. COMPARISON: 03/17/2018. FINDINGS: Frontal and lateral views of the chest are obtained. There are no confluent infiltrates. There is no pneumothorax or pleural effusion. The heart is not enlarged. IMPRESSION: 1. No confluent infiltrates. Electronically signed by: Zeyad Marion MD (09/29/2018 4:07 PM) [facility]
== END | disposition home or self-care (01) ==
LOC: DXRAD 15:49
PROVIDERS: ATTEND Registered Nurse
DX: R05 Cough (principal)
CPT/HCPCS: 71046

== ENCOUNTER 2019-03-28 17:10 | Emergency (ER) | payer BC ==
[~2019-03-28] VITALS: Ht 170.2 cm; Wt 96.6 kg
[2019-03-28] MEDS ORDERED: IV NORMAL SALINE 1,000ML 1,000 ML IV SCH (18:45)
--- NOTE | 2019-03-28 18:56 | PHYS DOC ---
Past History Past Medical History: GERD, IBS, Other Past Surgical History: Appendectomy Smoking: Non-smoker Alcohol Use: Occasionally Drug Use: None Adult General Chief Complaint Chief Complaint: ABDOMINAL PAIN HPI HPI Patient is a 24 year old female who presents with complaint of abdominal pain and bloody stools. Patient states that her symptoms started earlier today at approximately noon. Is having sharp severe lower abdominal pain and has been noticing significant passage of blood in stools. Has history of IBS and states that she is had previous history of recurrent pain and recurrent bloody stools but states that her current symptoms are worse than what she normally experiences with her condition. Rates pain currently as 9 out of 10 on my evaluation. States that it is throughout her lower abdomen. Denies radiation of pain. Has been having multiple episodes of loose stools. Denies fevers. Has been taking Pepcid and Bentyl at home with no improvement symptoms. Review of Systems Review of Systems Constitutional: Denies fever or chills [] Eyes: Denies change in visual acuity, redness, or eye pain [] HENT: Denies nasal congestion or sore throat [] Respiratory: Denies cough or shortness of breath [] Cardiovascular: Denies chest pain or edema[] GI: Abdominal pain, nausea, bloody stools, diarrhea[] : Denies dysuria or hematuria [] Musculoskeletal: Denies back pain or joint pain [] Integument: Denies rash or skin lesions [] Neurologic: Denies headache, focal weakness or sensory changes [] All other systems were reviewed and found to be within normal limits, except as documented in this note. Current Medications Current Medications Current Medications Medications (Trade) Dose Ordered Sig/Rafael Start Time Stop Time Status Last Admin Dose Admin Dicyclomine HCl (Bentyl) 10 mg 1X ONCE 03/28/19 19:00 03/28/19 19:01 Diphenhydramine HCl (Benadryl) 25 mg 1X ONCE 03/28/19 19:00 03/28/19 19:01 Famotidine (Pepcid Vial) 20 mg 1X ONCE 03/28/19 19:00 03/28/19 19:01 Haloperidol Lactate (Haldol) 2 mg 1X ONCE 03/28/19 19:00 03/28/19 19:01 Ondansetron HCl (Zofran) 4 mg 1X ONCE 03/28/19 19:00 03/28/19 19:01 Sodium Chloride 1,000 ml @ 1,000 mls/hr Q1H 03/28/19 18:45 03/28/19 19:44 Allergies Allergies Allergies Coded Allergies Type Severity Reaction Last Updated Verified morphine Allergy Severe Itching 03/17/18 Yes cefaclor Allergy Intermediate 03/17/18 Yes sulfur Allergy Intermediate 03/17/18 Yes metoclopramide Adverse Reaction Unknown Facial twitching 04/22/18 Yes prochlorperazine Adverse Reaction Unknown Facial twitching 04/22/18 Yes Physical Exam Physical Exam Constitutional: Alert, afebrile, appears in moderate to severe discomfort, appears anxious. [] HENT: Normocephalic, atraumatic, bilateral external ears normal, oropharynx moist, no oral exudates, nose normal. [] Eyes: PERRLA, EOMI, conjunctiva normal, no discharge. [] Neck: Normal range of motion, no tenderness, supple, no stridor. [] Cardiovascular: Tachycardiac, regular rhythm, no murmur [] Lungs & Thorax: Bilateral breath sounds clear to auscultation [] Abdomen: Bowel sounds normal, soft, bilateral lower quadrant and suprapubic tenderness to palpation, no guarding, no rebound tenderness, no masses, no pulsatile masses. [] Skin: Warm, dry, no erythema, no rash. [] Back: No tenderness, no CVA tenderness. [] Extremities: No tenderness, no cyanosis, no clubbing, ROM intact, no edema. [] Neurologic: Alert and oriented X 3, normal motor function, normal sensory function, no focal deficits noted. [] Current Patient Data Vital Signs Vital Signs Date Time Temp Pulse Resp B/P (MAP) Pulse Ox O2 Delivery O2 Flow Rate FiO2 03/28/19 18:34 98.8 86 20 Lab Results Laboratory Tests Test 03/28/19 18:05 03/28/19 19:23 White Blood Count 6.4 x10^3/uL Red Blood Count 4.45 x10^6/uL Hemoglobin 11.9 g/dL Hematocrit 37.1 % Mean Corpuscular Volume 83 fL Mean Corpuscular Hemoglobin 27 pg Mean Corpuscular Hemoglobin Concent 32 g/dL Red Cell Distribution Width 14.7 % Platelet Count 265 x10^3/uL Neutrophils (%) (Auto) 44 % Lymphocytes (%) (Auto) 46 % Monocytes (%) (Auto) 9 % Eosinophils (%) (Auto) 2 % Basophils (%) (Auto) 0 % Neutrophils # (Auto) 2.8 x10^3uL Lymphocytes # (Auto) 2.9 x10^3/uL Monocytes # (Auto) 0.6 x10^3/uL Eosinophils # (Auto) 0.1 x10^3/uL Basophils # (Auto) 0.0 x10^3/uL Urine Collection Type Unknown Urine Color Yellow Urine Clarity Clear Urine pH 7.0 Urine Specific [place] >=1.030 Urine Protein Neg Urine Glucose (UA) Neg mg/dL Urine Ketones (Stick) Neg mg/dL Urine Blood Neg Urine Nitrite Neg Urine Bilirubin Neg Urine Urobilinogen Dipstick 0.2 mg/dL Urine Leukocyte Esterase Neg Urine RBC Occ /HPF Urine WBC Occ /HPF Urine Squamous Epithelial Cells Occ /LPF Urine Bacteria Few /HPF Urine Mucus Slight /LPF Sodium Level 141 mmol/L Potassium Level 3.5 mmol/L Chloride Level 105 mmol/L Carbon Dioxide Level 26 mmol/L Anion Gap 10 Blood Urea Nitrogen 10 mg/dL Creatinine 0.8 mg/dL Estimated GFR (Cockcroft-Gault) 86.7 BUN/Creatinine Ratio 13 Glucose Level 101 mg/dL Calcium Level 8.6 mg/dL Total Bilirubin 0.1 mg/dL Aspartate Amino Transf (AST/SGOT) 17 U/L Alanine Aminotransferase (ALT/SGPT) 24 U/L Alkaline Phosphatase 82 U/L Total Protein 7.0 g/dL Albumin 3.2 g/dL Albumin/Globulin Ratio 0.8 Lipase 119 U/L Urine Test Negative Current Medications Medications (Trade) Dose Ordered Sig/Rafael Route PRN Reason Start Time Stop Time Status Last Admin Dose Admin Sodium Chloride 1,000 ml @ 1,000 mls/hr Q1H IV 03/28/19 18:45 03/28/19 19:44 DC 03/28/19 19:10 Ondansetron HCl (Zofran) 4 mg 1X ONCE IVP 03/28/19 19:00 03/28/19 19:01 DC 03/28/19 19:04 Famotidine (Pepcid Vial) 20 mg 1X ONCE IVP 03/28/19 19:00 03/28/19 19:01 DC 03/28/19 19:07 Dicyclomine HCl (Bentyl) 10 mg 1X ONCE IM 03/28/19 19:00 03/28/19 19:01 DC 03/28/19 19:10 Haloperidol Lactate (Haldol) 2 mg 1X ONCE IVP 03/28/19 19:00 03/28/19 19:01 DC 03/28/19 19:03 Diphenhydramine HCl (Benadryl) 25 mg 1X ONCE IVP 03/28/19 19:00 03/28/19 19:01 DC 03/28/19 19:05 EKG EKG Not performed[] Radiology/Procedures Radiology/Procedures 3 view acute abdominal series interpreted by me: Mild prominence of small bowel loops with scattered air-fluid levels, nonobstructive bowel gas pattern, no free air under the diaphragm[] Course & Med Decision Making Course & Med Decision Making Pertinent Labs and Imaging studies reviewed. (See chart for details) The patient was given IV fluids, Bentyl, Pepcid, Zofran, Haldol, and Benadryl in the emergency department. On reevaluation, the patient states her symptoms are significantly improved at this time. The patient's x-ray imaging shows mild prominence of the small bowel. This would be consistent with either a gastroenteritis or possible flareup of irritable bowel syndrome. Patient states that she has not passed any further amounts of blood in the emergency department. A rectal exam was offered but declined by patient. She states that she feels comfortable going home at this time as lab work does appear stable and vital signs remained stable in the emergency department. Patient discharged with recommended follow-up tomorrow with primary doctor for reevaluation and recommended return to the emergency department for any worsening symptoms. Patient was understanding and in agreement with treatment plan.[] Dragon Disclaimer Dragon Disclaimer This electronic medical record was generated, in whole or in part, using a voice recognition dictation system. Departure Departure: Impression: Primary Impression: Abdominal pain Additional Impression: Diarrhea Disposition: HOME, SELF-CARE Condition: IMPROVED Referrals: YEHUDA ESCOBAR (PCP) Patient Instructions: Abdominal Pain (Nonspecific), Diarrhea Additional Instructions: Follow-up with your primary doctor tomorrow for reevaluation. Return to the emergency department for any worsening symptoms. Problem Qualifiers Primary Impression: Abdominal pain Abdominal location: lower abdomen, unspecified Qualified Codes: R10.30 - Lower abdominal pain, unspecified Additional Impression: Diarrhea Diarrhea type: unspecified type Qualified Codes: R19.7 - Diarrhea, unspecified CONCHITA BURNHAM MD Mar 28, 2019 18:56
[2019-03-28] MEDS ORDERED: ONDANSETRON PF 4 MG/2 ML VIAL. IVP ONE (19:00)
[2019-03-28] MEDS ORDERED: HALOPERIDOL LACT 5 MG/ML VIAL. IVP ONE (19:00)
[2019-03-28] MEDS ORDERED: diphenhydrAMINE 50 MG/ML VIAL IVP ONE (19:00)
[2019-03-28] MEDS ORDERED: FAMOTIDINE 20 MG/2 ML VIAL IVP ONE (19:00)
[2019-03-28] MEDS ORDERED: DICYCLOMINE 20 MG/2 ML AMPUL. IM ONE (19:00)
[2019-03-28 19:12] LABS: BASO % 0 % (0-3); EOS # 0.1 x10^3/uL (0.0-0.7); EOS % 2 % (0-3); HEMATOCRIT 37.1 % (36.0-47.0); HEMOGLOBIN 11.9 g/dL (12.0-15.5); LYMPH # 2.9 x10^3/uL (1.0-4.8); LYMPH % 46 % (24-48); MEAN CORPUSCULAR HEMOGLOBIN 27 pg (25-35); MEAN CORPUSCULAR HGB CONC 32 g/dL (31-37); MEAN CORPUSCULAR VOLUME 83 fL (79-100); MONO # 0.6 x10^3/uL (0.0-1.1); MONO % 9 % (0-9); NEUT # 2.8 x10^3uL (1.8-7.7); NEUT % 44 % (31-73); PLATELET COUNT 265 x10^3/uL (140-400); RED BLOOD COUNT 4.45 x10^6/uL (3.50-5.40); RED CELL DISTRIBUTION WIDTH 14.7 % (11.5-14.5); WHITE BLOOD COUNT 6.4 x10^3/uL (4.0-11.0)
[2019-03-28 19:17] LABS: ALBUMIN 3.2 g/dL (3.4-5.0); ALBUMIN/GLOBULIN RATIO 0.8 (1.0-1.7); CALCIUM 8.6 mg/dL (8.5-10.1); CREATININE 0.8 mg/dL (0.6-1.0); GFR 86.7; POTASSIUM 3.5 mmol/L (3.5-5.1); TOTAL BILIRUBIN 0.1 mg/dL (0.2-1.0)
[2019-03-28 19:39] LABS: U PREG PATIENT NEGATIVE (NEG)
[2019-03-28 19:40] LABS: BILIRUBIN,URINE NEG (NEG); CLARITY,URINE CLEAR; COLOR,URINE YELLOW; GLUCOSE,URINE NEG (NEG); NITRITE,URINE NEG (NEG); RBC,URINE OCC /HPF (0-2); UROBILINOGEN,URINE 0.2 mg/dL (0.2 mg/dL); WBC,URINE OCC /HPF (0-4)
[2019-03-28 19:41] LABS: BACTERIA,URINE FEW /HPF (0-FEW); SQUAMOUS EPITHELIAL CELL,UR OCC /LPF
[2019-03-28 21:11] VITALS: BP 135/75
--- NOTE | 2019-03-28 23:51 | RAD ---
ACUTE ABDOMEN SERIES History: Abdominal pain. Rectal bleeding. Technique: Upright and supine views of the abdomen. Comparison: June 09, 2017 Findings: No consolidation or pleural effusion. No pneumoperitoneum. Mildly dilated air-filled loops of small bowel within the mid abdomen. Air-fluid levels are identified. Air and stool scattered throughout the imaged colon. Impression: 1. Mildly dilated air-filled loops of small bowel within the mid abdomen with air-fluid levels, may represent enteritis or ileus and partial small bowel obstruction is not excluded. Recommend follow-up or CT to further evaluate if indicated. Electronically signed by: Anjum Stokes DO (03/28/2019 11:48 PM) [facility]
== END 2019-03-28 21:10 | disposition home or self-care (01) ==
LOC: ER 17:10
DX: R19.7 Diarrhea, unspecified (principal); K21.9 Gastro-esophageal reflux disease without esophagitis; K58.9 Irritable bowel syndrome, unspecified; Z90.89 Acquired absence of other organs; Z88.5 Allergy status to narcotic agent; Z88.2 Allergy status to sulfonamides; Z88.1 Allergy status to other antibiotic agents; Z88.8 Allergy status to other drugs, medicaments and biological substances
CPT/HCPCS: 36415; 74022; 80053; 81001; 81025; 83690; 85025; 96361; 96372; 96374; 96375; 99285; J0500; J1200; J1630; J2405; J3490; J7030

== ENCOUNTER 2019-08-29 07:55 | Emergency (ER) | payer BC ==
[~2019-08-29] VITALS: Ht 170.2 cm; Wt 101.9 kg
[2019-08-29 08:09] VITALS: BP 137/84
[2019-08-29] MEDS ORDERED: KETOROLAC 30 MG/ML VIAL. ONE (08:23)
[2019-08-29] MEDS ORDERED: PROMETHAZINE 25 MG TABLET. PO ONE (08:30)
[2019-08-29] MEDS ORDERED: KETOROLAC 60 MG/2 ML VIAL. IM ONE (08:30)
[2019-08-29] MEDS ORDERED: RIZA10TA PO (08:50)
--- NOTE | 2019-08-29 08:51 | PHYS DOC ---
Past History Past Medical History: GI Bleed Additional Past Medical Histor: Significant GI history Past Surgical History: Tonsillectomy Additional Past Surgical Histo: Multiple GI surgeries Smoking: Non-smoker Alcohol Use: None Drug Use: None Adult General Chief Complaint Chief Complaint: HEADACHE HPI HPI Patient is a 24 year old female who presents with complaint of headache. The patient states that her symptoms started earlier this morning at 0300. Notes she has history of frequent migraine headaches. States that she typically takes Maxalt and Excedrin at home as needed for symptoms. Notes that she ran out of her Maxalt prescription and has not been able to have this refilled at this time. States despite taking Excedrin and Zofran, her symptoms continue at this time and have worsened. Notes significant head pressure and photophobia. Has developed developed worsening nausea since onset of symptoms. Denies fever, chest pain, cough, shortness of breath, diarrhea, or abdominal pain. Due to worsening symptoms she came to the emergency department for further treatment and evaluation. Denies any loss of taste or smell, vision changes, unilateral weakness, or difficulty with speech or swallowing. Review of Systems Review of Systems Constitutional: Denies fever or chills [] Eyes: Photophobia, denies change in visual acuity, redness, or eye pain [] HENT: Denies nasal congestion or sore throat [] Respiratory: Denies cough or shortness of breath [] Cardiovascular: Denies chest pain or edema [] GI: Nausea, denies abdominal pain, vomiting, bloody stools or diarrhea [] : Denies dysuria or hematuria [] Musculoskeletal: Denies back pain or joint pain [] Integument: Denies rash or skin lesions [] Neurologic: Headache, denies focal weakness or sensory changes [] All other systems were reviewed and found to be within normal limits, except as documented in this note. Current Medications Current Medications Current Medications Medications (Trade) Dose Ordered Sig/Rafael Start Time Stop Time Status Last Admin Dose Admin Ketorolac Tromethamine (Toradol 30mg Vial) 30 mg STK-MED ONCE 08/29/19 08:23 08/29/19 08:24 DC Ketorolac Tromethamine (Toradol Im) 60 mg 1X ONCE 08/29/19 08:30 08/29/19 08:42 DC 08/29/19 08:29 60 MG Promethazine HCl (Phenergan) 25 mg 1X ONCE 08/29/19 08:30 08/29/19 08:42 DC 08/29/19 08:29 25 MG Allergies Allergies Allergies Coded Allergies Type Severity Reaction Last Updated Verified morphine Allergy Severe Itching 03/17/18 Yes cefaclor Allergy Intermediate 03/17/18 Yes sulfur Allergy Intermediate 03/17/18 Yes metoclopramide Adverse Reaction Unknown Facial twitching 04/22/18 Yes prochlorperazine Adverse Reaction Unknown Facial twitching 04/22/18 Yes Physical Exam Physical Exam Constitutional: Alert, afebrile, appears in mild to moderate discomfort. [] HENT: Normocephalic, atraumatic, bilateral external ears normal, oropharynx moist, no oral exudates, nose normal. [] Eyes: PERRLA, EOMI, photophobia present, conjunctiva normal, no discharge. [] Neck: Normal range of motion, no tenderness, supple, no stridor. [] Cardiovascular:Heart rate regular rhythm, no murmur [] Lungs & Thorax: Bilateral breath sounds clear to auscultation [] Abdomen: Bowel sounds normal, soft, no tenderness, no masses, no pulsatile masses. [] Skin: Warm, dry, no erythema, no rash. [] Back: No tenderness, no CVA tenderness. [] Extremities: No tenderness, no cyanosis, no clubbing, ROM intact, no edema. [] Neurologic: Alert and oriented X 3, normal motor function, normal sensory function, no focal deficits noted. [] Current Patient Data Vital Signs Vital Signs Date Time Temp Pulse Resp B/P (MAP) Pulse Ox O2 Delivery O2 Flow Rate FiO2 08/29/19 08:09 98.8 93 20 137/84 (101) 99 Room Air Lab Results Not performed EKG EKG Not performed [] Radiology/Procedures Radiology/Procedures Not performed [] Course & Med Decision Making Course & Med Decision Making Pertinent Labs and Imaging studies reviewed. (See chart for details) Vital signs are stable. Patient experiencing typical symptoms for migraine headache. The patient was administered IM Toradol and given oral Phenergan in the emergency department for treatment. The patient appears stable for discharge. The patient was given prescription for Maxalt and Phenergan for continued treatment of symptoms at home and recommended follow-up in the next 3 days with primary doctor for reevaluation. Advised return to the emergency department for any worsening symptoms. Patient voiced understanding and in agreement with treatment plan. PPE: N95 mask, eye protection, and gloves were used during this patient encounter. [] Dragon Disclaimer Dragon Disclaimer This electronic medical record was generated, in whole or in part, using a voice recognition dictation system. Departure Departure: Impression: Primary Impression: Migraine headache Disposition: HOME, SELF-CARE Condition: IMPROVED Referrals: YEHUDA ESCOBAR (PCP) Patient Instructions: Migraine Headache Additional Instructions: Follow-up with your primary doctor in the next 3 days for reevaluation. Return to the emergency department for any worsening symptoms. Scripts Rizatriptan Benzoate (MAXALT) 10 Mg Tablet 1 TAB PO UD, #9 TAB 0 Refills Prov: CONCHITA BURNHAM MD 08/29/19 Problem Qualifiers Primary Impression: Migraine headache Migraine type: unspecified Status migrainosus presence: without status migrainosus Intractability: not intractable Qualified Codes: G43.909 - Migraine, unspecified, not intractable, without status migrainosus CONCHITA BURNHAM MD August 29, 2019 08:51
[2019-08-29] MEDS ORDERED: PROM25TA10 PO (08:53)
== END 2019-08-29 08:58 | disposition home or self-care (01) ==
LOC: ER 07:55
DX: G43.909 Migraine, unspecified, not intractable, without status migrainosus (principal); R11.0 Nausea; H53.149 Visual discomfort, unspecified; Z90.89 Acquired absence of other organs; Z98.890 Other specified postprocedural states; Z88.2 Allergy status to sulfonamides; Z88.6 Allergy status to analgesic agent; Z88.8 Allergy status to other drugs, medicaments and biological substances
CPT/HCPCS: 96372; 99283; J1885; Q0169

== ENCOUNTER 2019-10-22 16:41 | Emergency (ER) | payer BC ==
[~2019-10-22] VITALS: Ht 167.6 cm; Wt 102.3 kg
[~2019-10-22 16:41] MED LIST changes: +PROM25TA10 PO; +RIZA10TA PO
[2019-10-22] MEDS ORDERED: DEXAMETHASONE 4 MG TABLET PO ONE (16:45)
[2019-10-22] MEDS ORDERED: ACETAMINOPHEN 500 MG TABLET PO ONE (17:00)
[2019-10-22 17:57] VITALS: BP 121/79
--- NOTE | 2019-10-22 18:00 | PHYS DOC ---
Past History Past Medical History: GERD, IBS Additional Past Medical Histor: Significant GI history Past Surgical History: Appendectomy, Other Additional Past Surgical Histo: colonscopy and EGD last year Smoking: Non-smoker Alcohol Use: Occasionally Drug Use: None General Adult EDM: Chief Complaint: FEVER HPI: HPI: 24-year-old female presents with report of generalized body aches, fever-T-max 102, and shortness of air x4 days. Patient reports she has been around somebody that tested positive for COVID-19. Patient reports she took 1000 mg of Tylenol at 1500 and 800 mg of ibuprofen at 1530 for fever. Denies . Denies dysuria. Review of Systems: Review of Systems: Constitutional: Reports fever and chills and body aches Eyes: Denies redness or eye pain HENT: Denies nasal congestion or sore throat Respiratory: Denies cough; reports shortness of breath Cardiovascular: Denies chest pain or palpitations GI: Denies abdominal pain, nausea, or vomiting : Denies dysuria or hematuria Musculoskeletal: Denies back pain or joint pain Integument: Denies rash or skin lesions Neurologic: Denies headache, focal weakness or sensory changes Complete systems were reviewed and found to be within normal limits, except as documented in this note. Current Medications: Current Meds: Current Medications Medications (Trade) Dose Ordered Sig/[facility] Start Time Stop Time Status Last Admin Dose Admin Acetaminophen (Tylenol) 500 mg 1X ONCE 10/22/19 17:00 10/22/19 17:01 DC Dexamethasone (Decadron) 10 mg 1X ONCE 10/22/19 16:45 10/22/19 16:55 DC 10/22/19 16:45 10 MG Allergies: Allergies: Allergies Coded Allergies Type Severity Reaction Last Updated Verified morphine Allergy Severe Itching 10/22/19 Yes cefaclor Allergy Intermediate 10/22/19 Yes sulfur Allergy Intermediate 10/22/19 Yes metoclopramide Adverse Reaction Unknown Facial twitching 10/22/19 Yes prochlorperazine Adverse Reaction Unknown Facial twitching 10/22/19 Yes Physical Exam: PE: Constitutional: Well developed, well nourished, ill-appearing but nontoxic, anxious HENT: Normocephalic, atraumatic Eyes: Conjunctiva normal, no discharge Neck: Normal range of motion, no tenderness, supple, no meningeal signs Cardiovascular: Tachycardic and regular rhythm on telemetry monitoring Lungs & Thorax: No respiratory distress, equal chest rise and fall Abdomen: Soft, no tenderness Skin: Warm, dry, no erythema, no rash Back: No tenderness, no CVA tenderness Extremities: No tenderness, ROM intact, no edema Neurologic: Alert and oriented X 3, no focal deficits noted Psychologic: Affect anxious, judgment normal Current Patient Data: Labs: Laboratory Tests Test 10/22/19 17:05 Group A Streptococcus Rapid Negative (NEGATIVE) Vital Signs: Vital Signs Date Time Temp Pulse Resp B/P (MAP) Pulse Ox O2 Delivery O2 Flow Rate FiO2 10/22/19 16:41 98.0 122 16 121/85 (97) 98 Room Air EKG: EKG: [] Radiology/Procedures: Radiology/Procedures: PROCEDURE: CHEST AP ONLY EXAM: CHEST ONE VIEW. HISTORY: Cough and fever. COMPARISON: 10/09/2018. FINDINGS: A frontal view of the chest is obtained. There are no confluent infiltrates. There is no pneumothorax or pleural effusion. The heart is not enlarged. IMPRESSION: 1. No confluent infiltrates. Electronically signed by: Zeyad Marion MD (10/22/2019 6:00 PM) [facility] Course & Med Decision Making: Course & Med Decision Making Pertinent Labs and Imaging studies reviewed. (See chart for details) Patient presents with report of fever, generalized body aches, and shortness of air x4 days. Patient had addressed fever prior to arrival. Denies . Rapid strep negative. COVID testing pending. Chest x-ray without acute finding. Symptomatic treatment provided with oral steroid. Patient stable for discharge with outpatient follow-up with PCP. Discussed findings and plan with patient, who acknowledges understanding and agreement. COVID-19 CRITERIA: The patient was evaluated during the global COVID-19 pandemic, and that diagnosis was suspected/considered upon their initial presentation. Their evaluation, treatment and testing was consistent with current guidelines for patients who present with complaints or symptoms that may be related to COVID-19. Dragon Disclaimer: Dragon Disclaimer: This electronic medical record was generated, in whole or in part, using a voice recognition dictation system. Departure Departure: Impression: Primary Impression: Viral syndrome Additional Impression: Suspected COVID-19 virus infection Disposition: HOME/RESIDENCE PRIOR TO ADM Condition: STABLE Referrals: YEHUDA ESCOBAR (PCP) Patient Instructions: Viral Syndrome Additional Instructions: You have been tested for or diagnosed with COVID-19. It is an infection caused by a new type of coronavirus. COVID-19 will cause cold-like or mild flu symptoms in most. It can cause more severe symptoms like problems breathing in some. There is no treatment for COVID-19. The body will clear the infection over time. Self-care will help to ease discomfort. Steps to Take: Self-Care Rest as needed. Healthy habits may help you feel better. Steps include: Choose healthy foods including fruits and vegetables. Drink water throughout the day. Get plenty of sleep each night. If you smoke, try to quit. It may ease breathing. Avoid alcohol. Keep Others Healthy The virus can spread to others. Droplets are released every time you sneeze or cough. The droplets can get into the mouth, nose, or eyes of people near you and lead to infection. To lower the chances of spreading COVID-19 to others: Stay at home until your doctor has said it is safe to leave. If you tested positive this will mean staying isolated until both of the following are true: At least 7 days have passed since the start of illness. You are free of fever for at least 72 hours without the use of medicine. During this time: - Avoid public areas, events, or transportation. Do not return to work or school until your doctor has said it is safe to do so. - Call ahead if you need to go to a medical center. Let them know you may have COVID-19. It will help them guide you where to go. They may also ask you to wear a facemask when you come to the office. - If you call for emergency medical services, let them know you may have COVID-19. While at home: - Try to avoid close contact with others. Stay about 6 feet away. - If possible, spend most of your time in a separate room from others. - Use a face mask if you will be in close contact with others such as sharing a room or vehicle. - Have someone wipe down common surfaces in the home. Use household hse advisor every day on areas like doorknobs, counters, or sinks. - Cough or sneeze into a tissue. Throw the tissue away right after use. If a tissue is not available, cough or sneeze into your elbow. - Wash your hands often. Wash them after sneezing or coughing. Use soap and water and wash for at least 20 seconds. Alcohol based hand wallpaper cleaner can be used if soap and water is not available. - Do not prepare food for others. Avoid sharing personal items like forks, spoons, or toothbrushes. - Avoid close contact with pets while you are sick. There is no evidence of the virus passing to pets. This is a safety step until more is known about this virus. Isolation can be frustrating. Social interaction can help. Keep in touch with friends and family through phone and tech options. You can still interact with others in your home, just keep a safe distance of about 6 feet. Follow-up: Your doctors office will check in with you to see if there are any changes in your health. You may be asked to keep track of symptoms to share with them. They will also let you know when you are clear to be in public again. Problems to Look Out For: Contact your doctor if your recovery is not going as you expect. Get emergency care if you have problems such as: - Trouble breathing - Nonstop chest pain or pressure - Changes in awareness, confusion, or problems waking - Lips or face have bluish color - Worsening of symptoms If you think you have an emergency, call for emergency medical services right away. As taken from [facility] Justification of Admission: Justification of Admission: Justification of Admission Dx: N/A COVID-19 Assessment COVID-19 Patient Risks: Age 65 or older: No Sign of co-morbidity: No Exp to person + for COVID: Yes Exp to PUI: No Travel from affected area: No Lower respiratory symptoms: Yes Fever: Yes PPE Use: Full PPE with N95 mask or PAPR: Yes SHAJI COLLADO DO Oct 22, 2019 18:00
--- NOTE | 2019-10-22 18:03 | RAD ---
EXAM: CHEST ONE VIEW. HISTORY: Cough and fever. COMPARISON: 10/09/2018. FINDINGS: A frontal view of the chest is obtained. There are no confluent infiltrates. There is no pneumothorax or pleural effusion. The heart is not enlarged. IMPRESSION: 1. No confluent infiltrates. Electronically signed by: Zeyad Marion MD (10/22/2019 6:00 PM) [facility]
--- NOTE | 2019-10-30 15:33 | NUR ---
IP: notified patient of COVID-19 result.
== END 2019-10-22 18:11 | disposition home or self-care (01) ==
LOC: ER 16:41
DX: B34.9 Viral infection, unspecified (principal); Z20.828 Contact with and (suspected) exposure to other viral communicable diseases; K21.9 Gastro-esophageal reflux disease without esophagitis; K58.9 Irritable bowel syndrome, unspecified; Z90.49 Acquired absence of other specified parts of digestive tract; Z88.5 Allergy status to narcotic agent; Z88.1 Allergy status to other antibiotic agents; Z88.2 Allergy status to sulfonamides; Z88.8 Allergy status to other drugs, medicaments and biological substances
CPT/HCPCS: 71045; 87070; 87880; 99284; C9803; J8540; U0003

== ENCOUNTER → 2019-11-26 | Outpatient (CLI) | payer BC ==
[~2019-11-26] MED LIST changes: +IOHEXOL 300 MG/ML 75 ML VIAL. IV ONE
--- NOTE | 2019-11-26 13:43 | RAD ---
CT HEAD WO/W CONTRAST dated 11/26/2019 11:30 AM Indication:Syncope, headacheReason: nose bleeds, ringing in ears, syncope and migraines / Spl. Instructions: / History: . Comparison: 03/31/2011 Technique: Contiguous axial imaging of the head was performed with and without the administration of 75 cc Omnipaque 300. One or more of the following individualized dose reduction techniques were utilized for this examination: 1. Automated exposure control 2. Adjustment of the mA and/or kV according to patient size 3. Use of iterative reconstruction technique Findings: Ventricles and sulci are within normal limits for age. There is mild asymmetric dilation of the frontal horn of the right lateral ventricle compared to the left side, unchanged from prior study. No midline shift or mass effect. Brain parenchyma is of normal attenuation. No hemorrhage or extra-axial collection. Posterior fossa and brainstem unremarkable. Postcontrast imaging shows no abnormal enhancement or mass. Visualized paranasal sinuses and mastoid air cells are clear. No apparent calvarial abnormality. IMPRESSION: No evidence of acute intracranial abnormality. Electronically signed by: Flako Padilla MD (11/26/2019 1:39 PM) [facility]
== END | disposition home or self-care (01) ==
LOC: CT 11:02
PROVIDERS: ATTEND Family Medicine
DX: G43.909 Migraine, unspecified, not intractable, without status migrainosus (principal); R55 Syncope and collapse
CPT/HCPCS: 70470; Q9967

== ENCOUNTER → 2020-01-02 | Outpatient (CLI) | payer BC ==
[~2020-01-02] MED LIST changes: -IOHEXOL 300 MG/ML 75 ML VIAL. IV ONE
--- NOTE | 2020-01-02 10:24 | RAD ---
EXAM: Abdomen sonogram. HISTORY: Pain. TECHNIQUE: Sonographic imaging of the abdomen was performed. COMPARISON: None. FINDINGS: The liver is normal in size. No focal hepatic lesion is seen. There is hepatic steatosis. The common bile duct is normal in caliber. The gallbladder is unremarkable. The kidneys and spleen are unremarkable. The pancreas, aorta and inferior vena cava are partially obscured due to bowel gas and body habitus. IMPRESSION: 1. Hepatic steatosis. 2. Obscured midline structures due to bowel gas and body habitus. 3. No acute sonographic finding. Electronically signed by: Parul La MD (01/02/2020 10:21 AM) [facility]
== END | disposition home or self-care (01) ==
LOC: US 09:00
PROVIDERS: ATTEND Hospitalist
DX: K76.0 Fatty (change of) liver, not elsewhere classified (principal)
CPT/HCPCS: 76700

== ENCOUNTER 2021-04-14 14:27 | Emergency (ER) | payer BC ==
[~2021-04-14] VITALS: Ht 167.6 cm; Wt 106.1 kg
--- NOTE | 2021-04-14 15:23 | EKG ---
[address] [address] Test Date: 2021-04-14 Test Time: 14:54:11 Pat Name: ORTIZ JUAREZ Department: Room: Gender: F Trim Carpenter: LINDA : 1995 Requested By: CHASIDY BAHENA Order Number: [id number] Reading MD: Jay Oden MD Measurements Intervals [place] Rate: 114 P: 5 CA: 144 QRS: 24 QRSD: 88 T: 20 QT: 320 QTc: 444 Interpretive Statements SINUS TACHYCARDIA Electronically Signed On 04-20-2021 15:05:29 MAINTENANCE SCHEDULER by Jay Oden MD
--- NOTE | 2021-04-14 15:28 | PHYS DOC ---
Past History Past Medical History: GERD, IBS Additional Past Medical Histor: Significant GI history (CHASIDY BAHENA) Past Surgical History: Appendectomy Additional Past Surgical Histo: colonscopy and EGD last year (CHASIDY BAHENA) Smoking: Non-smoker Alcohol Use: Occasionally Drug Use: None (CHASIDY BAHENA) General Adult EDM: Chief Complaint: Palpitations HPI: HPI: Patient is a 26 year old with extensive GI history who presents with palpitations that began around 1130 this morning. Patient states that she was at work when her symptoms began. She works as a veterinary assistant, but states that the morning was not particularly busy or stressful. She noticed the feeling of palpitations in her chest and took her heart rate. She noticed it was elevated, so she sat down for about an hour and tried to rest. Patient states her heart rate did not come down. She reports her heart rate usually is around 75 bpm, but was consistently around [id number] all morning. Patient reports associated fac ial flushing and some mild lightheadedness. Patient reports that secondary to her ongoing gastrointestinal issues including GERD and IBS, she has not had sufficient oral intake of foods and fluids. She denies any recent stressors, work related or otherwise. Patient denies headache, paresthesias, diaphoresis, shortness of breath, cough, chest pain, new abdominal pain, emesis. (CHASIDY BAHENA) Review of Systems: Review of Systems: Constitutional: Denies fever or chills Eyes: Denies change in visual acuity or visual field deficits HENT: Denies nasal congestion or sore throat Respiratory: See HPI Cardiovascular: See HPI GI: See HPI : Denies dysuria or hematuria Musculoskeletal: Denies back pain or joint pain Integument: Denies diaphoresis, rash or other skin lesions Neurologic: Denies headache, focal weakness or sensory changes (CHASIDY BAHENA) Allergies: Allergies: Allergies Coded Allergies Type Severity Reaction Last Updated Verified morphine Allergy Severe Itching 10/22/19 Yes cefaclor Allergy Intermediate 10/22/19 Yes sulfur Allergy Intermediate 10/22/19 Yes metoclopramide Adverse Reaction Unknown Facial twitching 10/22/19 Yes prochlorperazine Adverse Reaction Unknown Facial twitching 10/22/19 Yes (CHASIDY BAHENA) Physical Exam: PE: Constitutional: Obese, resting comfortably in exam bed, no acute distress, non- toxic appearance. Neck: Normal range of motion, no tenderness, no JVD. Cardiovascular: Heart rate regular rhythm, no murmur. Lungs & Thorax: Bilateral breath sounds clear to auscultation. Abdomen: Bowel sounds normal, soft, no tenderness, no masses, no pulsatile masses. Skin: Warm, dry, no erythema, no rash. Back: No step-offs, no tenderness. Extremities: No tenderness, no cyanosis, no clubbing, ROM intact, no edema. (CHASIDY BAHENA) EKG: EKG: EKG Interpreted by Dr. Cobb at 1456: Sinus tachycardia 114 bpm, regular rhythm with no ectopic beats. QT 320 ms/QTc 444 ms. No STEMI. (CHASIDY BAHENA) Heart Score: C/O Chest Pain: No (CHASIDY BAHENA) Course & Med Decision Making: Course & Med Decision Making Pertinent Labs and Imaging studies reviewed. (See chart for details) Work-up today will include EKG, troponin and basic lab work. Patient will also receive 1 L normal saline IV. Work-up is largely unremarkable. On reevaluation, patient states that her symptoms are slightly improved, but definitely persistent. I informed her that her lab work and the rest of her work-up is reassuring. She states, "I am not usually a panicky person, I am trying not to feel super anxious." She does request medication that might help this feeling. Patient is instructed to follow-up with her primary care doctor regarding today's visit. She is also provided with contact information for a cardiolo gist, should she have recurrent symptoms. Patient understands and is agreeable to discharge plan. (CHASIDY BAHENA) Dragon Disclaimer: Dragon Disclaimer: This electronic medical record was generated, in whole or in part, using a voice recognition dictation system. (CHASIDY BAHENA) Attending Co-Sign The patient was seen and interviewed as well as examined at the bedside. The chart was reviewed. The case was discussed. Agree with the plan of care. (KAMERON COBB DO) Departure Departure: Impression: Primary Impression: Sinus tachycardia Additional Impressions: Palpitations with regular cardiac rhythm Anxiety about health Disposition: 01 HOME / SELF CARE / HOMELESS Condition: IMPROVED Referrals: YEHUDA ESCOBAR (PCP) Patient Instructions: Palpitations, [id number] Additional Instructions: In your work-up today, there is no evidence of acute cardiac injury. As discussed, you may follow-up with your primary care provider or health center manager for further evaluation, should your symptoms persist. Return to the emergency department for any new symptoms or if you develop chest pain. Scripts Hydroxyzine Hcl (HYDROXYZINE HCL) 25 Mg Tablet 1 TAB PO PRN TID PRN for ANXIETY / AGITATION, #30 TAB Prov: CHASIDY BAHENA 04/14/21 CHASIDY BAHENA Apr 14, 2021 15:28 KAMERON COBB DO Apr 15, 2021 11:54
[2021-04-14] MEDS ORDERED: IV NORMAL SALINE 1,000ML 1,000 ML IV ONE (15:30)
[2021-04-14 15:59] LABS: BASO # 0.1 x10^3/uL (0.0-0.2); BASO % 1 % (0-3); EOS # 0.1 x10^3/uL (0.0-0.7); EOS % 2 % (0-3); HEMATOCRIT 37.1 % (36.0-47.0); HEMOGLOBIN 11.8 g/dL (12.0-15.5); LYMPH # 2.6 x10^3/uL (1.0-4.8); LYMPH % 33 % (24-48); MEAN CORPUSCULAR HEMOGLOBIN 25 pg (25-35); MEAN CORPUSCULAR HGB CONC 32 g/dL (31-37); MEAN CORPUSCULAR VOLUME 79 fL (79-100); MONO # 0.7 x10^3/uL (0.0-1.1); MONO % 9 % (0-9); NEUT # 4.2 x10^3uL (1.8-7.7); NEUT % 55 % (31-73); PLATELET COUNT 285 x10^3/uL (140-400); RED BLOOD COUNT 4.69 x10^6/uL (3.50-5.40); RED CELL DISTRIBUTION WIDTH 15.9 % (11.5-14.5); WHITE BLOOD COUNT 7.7 x10^3/uL (4.0-11.0)
[2021-04-14 16:01] LABS: CALCIUM 8.8 mg/dL (8.5-10.1); CREATININE 0.9 mg/dL (0.6-1.0); GFR 74.6; POTASSIUM 3.9 mmol/L (3.5-5.1)
[2021-04-14 16:07] LABS: ALBUMIN 3.1 g/dL (3.4-5.0); ALBUMIN/GLOBULIN RATIO 0.8 (1.0-1.7); TOTAL BILIRUBIN 0.2 mg/dL (0.2-1.0); TOTAL PROTEIN 7.2 g/dL (6.4-8.2)
[2021-04-14] MEDS ORDERED: hydrOXYzine HCL 25 MG TABLET PO PRN (16:45)
[2021-04-14] MEDS ORDERED: HYDR25TA PO (16:47)
[2021-04-14 16:50] VITALS: BP 135/74
== END 2021-04-17 16:55 | disposition home or self-care (01) ==
LOC: ER 14:27
DX: R00.0 Tachycardia, unspecified (principal); R00.2 Palpitations; F41.9 Anxiety disorder, unspecified; K21.9 Gastro-esophageal reflux disease without esophagitis; K58.9 Irritable bowel syndrome, unspecified; Z88.2 Allergy status to sulfonamides; Z88.5 Allergy status to narcotic agent; Z88.1 Allergy status to other antibiotic agents; Z88.8 Allergy status to other drugs, medicaments and biological substances
CPT/HCPCS: 36415; 80053; 81025; 84484; 85025; 93005; 96360; 99284; J7030

== ENCOUNTER 2021-05-28 10:51 | Emergency (ER) | payer BC ==
[~2021-05-28] VITALS: Ht 167.6 cm; Wt 109.0 kg
[~2021-05-28 10:51] MED LIST changes: +HYDR25TA PO
[2021-05-28 10:59] VITALS: BP 132/75
[2021-05-28 12:17] LABS: BASO % 0 % (0-3); EOS # 0.2 x10^3/uL (0.0-0.7); EOS % 3 % (0-3); HEMATOCRIT 36.6 % (36.0-47.0); HEMOGLOBIN 11.5 g/dL (12.0-15.5); LYMPH # 2.6 x10^3/uL (1.0-4.8); LYMPH % 39 % (24-48); MEAN CORPUSCULAR HEMOGLOBIN 25 pg (25-35); MEAN CORPUSCULAR HGB CONC 31 g/dL (31-37); MEAN CORPUSCULAR VOLUME 80 fL (79-100); MONO # 0.6 x10^3/uL (0.0-1.1); MONO % 9 % (0-9); NEUT # 3.2 x10^3uL (1.8-7.7); NEUT % 49 % (31-73); PLATELET COUNT 281 x10^3/uL (140-400); RED BLOOD COUNT 4.58 x10^6/uL (3.50-5.40); RED CELL DISTRIBUTION WIDTH 15.5 % (11.5-14.5); WHITE BLOOD COUNT 6.6 x10^3/uL (4.0-11.0)
[2021-05-28 12:25] LABS: CALCIUM 8.9 mg/dL (8.5-10.1); CREATININE 0.9 mg/dL (0.6-1.0); GFR 74.6; POTASSIUM 4.4 mmol/L (3.5-5.1)
--- NOTE | 2021-05-28 12:27 | PHYS DOC ---
Past History Past Medical History: GERD, IBS Additional Past Medical Histor: Significant GI history (CHASIDY BAHENA) Past Surgical History: No Surgical History Additional Past Surgical Histo: endoscopy 05/27/21, multiple scope studies (CHASIDY BAHENA) Smoking: Non-smoker Alcohol Use: Occasionally Drug Use: None (CHASIDY BAHENA) General Adult EDM: Chief Complaint: BLOODY STOOL HPI: HPI: Patient is a 26 year old female with extensive GI history chronic abdominal pain who presents with bloody stool. Patient states that yesterday, she had an endoscopy and was intubated. There was a complication with her sedation, and she "woke up choking on the tube." She reports that after she went home, she felt some irritation in her throat. They did perform a CT after her endoscopy to ensure there was not evidence of damage caused s/p endoscopy complications. Later on in the evening yesterday, she reports she had 1 episode of emesis which had "bloody flakes" in it. Today, she states she has epigastric and periumbilical abdominal pain and bright red blood per rectum. She called her chemistry research assistant, who advised that she present to the emergency department for a CBC. Patient has no additional complaints. (CHASIDY BAHENA) Review of Systems: Review of Systems: Constitutional: Denies fever, chills or generalized weakness Eyes: Denies change in visual acuity, visual field deficits or discharge HENT: Denies ear pain, nasal congestion or sore throat Respiratory: Denies cough or shortness of breath Cardiovascular: Denies chest pain, palpitations or edema GI: See HPI : Denies dysuria or hematuria Musculoskeletal: Denies back pain or joint pain Integument: Denies rash or other skin lesion Neurologic: Denies headache, focal weakness or sensory changes (CHASIDY BAHENA) Allergies: Allergies: Allergies Coded Allergies Type Severity Reaction Last Updated Verified morphine Allergy Severe Itching 10/22/19 Yes cefaclor Allergy Intermediate 10/22/19 Yes sulfur Allergy Intermediate 10/22/19 Yes metoclopramide Adverse Reaction Unknown Facial twitching 10/22/19 Yes prochlorperazine Adverse Reaction Unknown Facial twitching 10/22/19 Yes (CHASIDY BAHENA) Physical Exam: PE: Constitutional: Well developed, well nourished, no acute distress, chronically ill-appearing. HENT: Normocephalic, atraumatic, bilateral external ears normal, nose normal. Eyes: EOMI, conjunctiva normal, no discharge. Neck: Normal range of motion, no tenderness, supple, no stridor. Abdomen: Bowel sounds normal, soft, diffuse tenderness without rebound or guarding, no masses, no pulsatile masses. Skin: Warm, dry, no erythema, no rash. Extremities: No tenderness, no cyanosis, no clubbing, ROM intact, no edema. Neurologic: Alert and oriented x4, no focal deficits noted. (CHASIDY BAHENA) Current Patient Data: Labs: Laboratory Tests Test 05/28/21 12:03 White Blood Count 6.6 x10^3/uL (4.0-11.0) Red Blood Count 4.58 x10^6/uL (3.50-5.40) Hemoglobin 11.5 g/dL (12.0-15.5) Hematocrit 36.6 % (36.0-47.0) Mean Corpuscular Volume 80 fL (79-100) Mean Corpuscular Hemoglobin 25 pg (25-35) Mean Corpuscular Hemoglobin Concent 31 g/dL (31-37) Red Cell Distribution Width 15.5 % (11.5-14.5) Platelet Count 281 x10^3/uL (140-400) Neutrophils (%) (Auto) 49 % (31-73) Lymphocytes (%) (Auto) 39 % (24-48) Monocytes (%) (Auto) 9 % (0-9) Eosinophils (%) (Auto) 3 % (0-3) Basophils (%) (Auto) 0 % (0-3) Neutrophils # (Auto) 3.2 x10^3uL (1.8-7.7) Lymphocytes # (Auto) 2.6 x10^3/uL (1.0-4.8) Monocytes # (Auto) 0.6 x10^3/uL (0.0-1.1) Eosinophils # (Auto) 0.2 x10^3/uL (0.0-0.7) Basophils # (Auto) 0.0 x10^3/uL (0.0-0.2) Sodium Level 139 mmol/L (136-145) Potassium Level 4.4 mmol/L (3.5-5.1) Chloride Level 105 mmol/L (98-107) Carbon Dioxide Level 26 mmol/L (21-32) Anion Gap 8 (6-14) Blood Urea Nitrogen 7 mg/dL (7-20) Creatinine 0.9 mg/dL (0.6-1.0) Estimated GFR (Cockcroft-Gault) 74.6 BUN/Creatinine Ratio 8 (6-20) Glucose Level 82 mg/dL (70-99) Calcium Level 8.9 mg/dL (8.5-10.1) Total Bilirubin 0.2 mg/dL (0.2-1.0) Aspartate Amino Transf (AST/SGOT) 24 U/L (15-37) Alanine Aminotransferase (ALT/SGPT) 30 U/L (14-59) Alkaline Phosphatase 74 U/L (46-116) Total Protein 7.0 g/dL (6.4-8.2) Albumin 3.0 g/dL (3.4-5.0) Albumin/Globulin Ratio 0.8 (1.0-1.7) Lipase 74 U/L (73-393) Vital Signs: Vital Signs Date Time Temp Pulse Resp B/P (MAP) Pulse Ox O2 Delivery O2 Flow Rate FiO2 05/28/21 10:59 98.2 97 18 132/75 (94) 97 Room Air (CHASIDY BAHENA) Heart Score: C/O Chest Pain: No (CHASIDY BAHENA) Course & Med Decision Making: Course & Med Decision Making Pertinent Labs and Imaging studies reviewed. (See chart for details) Patient is a 26-year-old female who presents with an episode of bloody stool this morning. Patient had an endoscopy with complication yesterday. CT imaging after the procedure was negative for any acute findings. Her chemistry research assistant advised that she present to the emergency department for CBC to ensure she is not hemorrhaging from a GI bleed. They told her they would follow-up with her after her ER visit. Work-up today will include a CBC as well as CMP. Imaging will be deferred at this time, as she just had a CT done yesterday. Patient was treated with Reglan at her request, as her Zofran at home is not working and she reacts poorly to Compazine. All of the patient's questions were answered and she was strongly advised to keep her appointment with her chemistry research assistant for follow-up. Return precautions were provided. Patient understands and is agreeable to discharge plan. Case was discussed with Dr. Cobb in the department prior to patient discharge. (CHASIDY BAHENA) Sacha Disclaimer: Sacha Disclaimer: This electronic medical record was generated, in whole or in part, using a voice recognition dictation system. (CHASIDY BAHENA) Attending Co-Sign The patient was seen and interviewed as well as examined at the bedside. The chart was reviewed. The case was discussed. Agree with the plan of care. (KAMERON COBB DO) Departure Departure: Impression: Primary Impression: Bloody stool Additional Impressions: IBS (irritable bowel syndrome) Qualified Codes: K58.9 - Irritable bowel syndrome without diarrhea GERD (gastroesophageal reflux disease) Qualified Codes: K21.9 - Gastro-esophageal reflux disease without esophagitis Chronic abdominal pain Disposition: HOME / SELF CARE / HOMELESS Condition: STABLE Referrals: YEHUDA ESCOBAR (PCP) Patient Instructions: Bloody Stools, [id number] Additional Instructions: EMERGENCY DEPARTMENT GENERAL DISCHARGE INSTRUCTIONS Thank you for coming to [facility] (ED) today and trusting us with you care. We trust that you had a positive experience in our Emergency Department. If you wish to speak to the department management, you may call the director at [phone]. YOUR FOLLOW UP INSTRUCTIONS ARE FOLLOWS: 1. Follow up with your primary care doctor. If you do not have a primary doctor, please ask for a resource list of physicians or clinics that may be able to assist you with follow up care. 2. The emergency provider has interpreted your imaging studies, if any were ordered. The radiology fundraising specialist also reviewed them. If there is a change in the findings, you will be notified in 48 hours when at all possible. 3. If a lab test or culture has been done, your results will be reviewed and you will be notified if you need a change in treatment. 4. Follow instructions verbalized to you and refer to the printouts if needed. ADDITIONAL INSTRUCTIONS AND INFORMATION: 1. Your care today has been supervised by a physician who is specially trained in emergency care. Many problems require more than one evaluation for a complete diagnosis and treatment. We recommend that you schedule your follow up appointment as recommended to ensure complete treatment of you illness or injury. If you are unable to obtain follow up care and continue to have a problem, or if your condition worsens, we recommend that you return to the ED. 2. We are not able to safely determine your condition over the phone nor are we able to give sound medical advice over the phone. For these safety reasons, if you call for medical advice we will ask you to come to the ED for further evaluation. 3. If you have any questions regarding these discharge instructions please call the ED at [phone]. SAFETY INFORMATION: In the interest of safety, wellness, and injury prevention; we encourage you to wear your seat belt, if you smoke; quite smoking, and we encourage family to use a protective helmet for bicycling and other sporting events that present an increased risk for head injury. IF YOUR SYMPTOMS WORSEN OR NEW SYMPTOMS DEVELOP, OR YOU HAVE CONCERNS ABOUT YOUR CONDITION; OR IF YOUR CONDITION WORSENS WHILE YOU ARE WAITING FOR YOUR FOLLOW UP APPOINTMENT; EITHER CONTACT YOUR PRIMARY CARE DOCTOR, THE PHYSICIAN WHOSE NAME AND NUMBER YOU WERE GIVEN, OR RETURN TO THE ED IMMEDIATELY. CHASIDY BAHENA May 28, 2021 12:27 KAMERON COBB DO May 29, 2021 06:33
[2021-05-28 12:32] LABS: ALBUMIN/GLOBULIN RATIO 0.8 (1.0-1.7); TOTAL BILIRUBIN 0.2 mg/dL (0.2-1.0)
[2021-05-28] MEDS ORDERED: PROMETHAZINE 25 MG TABLET. PO ONE (12:45)
[2021-05-28] MEDS ORDERED: ACETAMINOPHEN 500 MG TABLET PO ONE (12:45)
== END 2021-05-28 13:05 | disposition home or self-care (01) ==
LOC: ER 10:51
DX: K58.9 Irritable bowel syndrome, unspecified (principal); K21.9 Gastro-esophageal reflux disease without esophagitis; K92.1 Melena; G89.29 Other chronic pain; Z88.5 Allergy status to narcotic agent; Z88.1 Allergy status to other antibiotic agents; Z88.2 Allergy status to sulfonamides; Z88.8 Allergy status to other drugs, medicaments and biological substances
CPT/HCPCS: 36415; 80053; 83690; 85025; 99283; Q0169

== ENCOUNTER 2021-09-08 12:35 | Emergency (ER) | payer BC ==
[~2021-09-08] VITALS: Ht 167.6 cm; Wt 114.0 kg
[2021-09-08] MEDS ORDERED: IV NORMAL SALINE 1,000ML 1,000 ML IV ONE (13:30)
[2021-09-08] MEDS ORDERED: LIDO:MAALOX 1:1 20 ML SINGLE DOSE. PO ONE (13:30)
--- NOTE | 2021-09-08 13:38 | PHYS DOC ---
Past History Past Medical History: GERD, IBS Additional Past Medical Histor: IBS, eosinophil esophagitis Past Surgical History: No Surgical History, Other Additional Past Surgical Histo: endoscopy 05/27/21, multiple scope studies, L ulnar nerve Smoking: Non-smoker Alcohol Use: Occasionally Drug Use: None General Adult EDM: Chief Complaint: CHEST PAIN HPI: HPI: Patient is a 26-year-old female who presents to the emergency department from urgent care for generalized chest pain. Patient reports around 9:00 this morning she started having a coughing fit. She reported nonproductive cough which was followed by sharp chest pain. She reports that the sharp chest pain has resolved and now she just feels a deep ache throughout her generalized chest. Patient states that it feels like her "airways are inflamed". Patient feels like her breathing is constricted like she is breathing through a straw. She denies any shortness of breath, leg swelling or pain, fevers. She reports taking 50 mg of Benadryl and using an albuterol inhaler that she had at home from previous diagnosis of bronchitis without relief. Patient reports that the urgent care was concerned she may have a pulmonary embolism as she is on estrogen therapy which was why she was sent down to the emergency department. She has a history of GERD, IBS, eosinophilic esophagitis and migraines. Review of Systems: Review of Systems: Constitutional: see HPI Respiratory: see HPI Cardiovascular see HPI Integument: see HPI Current Medications: Current Meds: Current Medications Medications (Trade) Dose Ordered Sig/Rafael Start Time Stop Time Status Last Admin Dose Admin Multi-Ingredient Mouthwash/Gargle (Gi Cocktail) 20 ml 1X ONCE 09/08/21 13:30 09/08/21 13:31 DC Sodium Chloride 1,000 ml @ 1,000 mls/hr 1X ONCE 09/08/21 13:30 09/08/21 14:29 Allergies: Allergies: Allergies Coded Allergies Type Severity Reaction Last Updated Verified morphine Allergy Severe Itching 10/22/19 Yes cefaclor Allergy Intermediate 10/22/19 Yes Sulfa (Sulfonamide Antibiotics) Allergy Unknown 09/08/21 Yes metoclopramide Adverse Reaction Unknown Facial twitching 10/22/19 Yes prochlorperazine Adverse Reaction Unknown Facial twitching 10/22/19 Yes Physical Exam: PE: Constitutional: Well developed, well nourished, no acute distress, non-toxic appearance. [] HENT: Normocephalic, atraumatic, bilateral external ears normal, oropharynx moist, no oral exudates, nose normal. [] Eyes: PERRL, EOMI, conjunctiva normal, no discharge. [] Neck: Normal range of motion, no tenderness, supple, no stridor. [] Cardiovascular:Heart rate tachycardic rhythm, no murmur, no chest wall tenderness with palpation[] Lungs & Thorax: Bilateral breath sounds clear to auscultation [] Abdomen: Bowel sounds normal, soft, no tenderness, no masses, no pulsatile masses. [] Skin: Warm, dry, no erythema, no rash. [] Back: No tenderness, normal rom Extremities: No tenderness, no cyanosis, no clubbing, ROM intact, no edema. [] Neurologic: Alert and oriented X 3, normal motor function, normal sensory function, no focal deficits noted. [] Psychologic: Affect normal, judgement normal, mood normal. [] Current Patient Data: Labs: Laboratory Tests Test 09/08/21 13:40 09/08/21 13:45 White Blood Count 7.6 x10^3/uL Red Blood Count 4.61 x10^6/uL Hemoglobin 11.4 g/dL Hematocrit 36.1 % Mean Corpuscular Volume 78 fL Mean Corpuscular Hemoglobin 25 pg Mean Corpuscular Hemoglobin Concent 32 g/dL Red Cell Distribution Width 15.8 % Platelet Count 294 x10^3/uL Neutrophils (%) (Auto) 53 % Lymphocytes (%) (Auto) 36 % Monocytes (%) (Auto) 9 % Eosinophils (%) (Auto) 2 % Basophils (%) (Auto) 1 % Neutrophils # (Auto) 4.1 x10^3uL Lymphocytes # (Auto) 2.7 x10^3/uL Monocytes # (Auto) 0.7 x10^3/uL Eosinophils # (Auto) 0.1 x10^3/uL Basophils # (Auto) 0.0 x10^3/uL D-Dimer (Leonie) 0.37 mg/L Sodium Level 141 mmol/L Potassium Level 4.0 mmol/L Chloride Level 106 mmol/L Carbon Dioxide Level 25 mmol/L Anion Gap 10 Blood Urea Nitrogen 9 mg/dL Creatinine 0.9 mg/dL Estimated GFR (Cockcroft-Gault) 74.6 BUN/Creatinine Ratio 10 Glucose Level 101 mg/dL Calcium Level 8.8 mg/dL Total Bilirubin 0.1 mg/dL Aspartate Amino Transf (AST/SGOT) 23 U/L Alanine Aminotransferase (ALT/SGPT) 26 U/L Alkaline Phosphatase 104 U/L Troponin I High Sensitivity 5 ng/L Total Protein 6.5 g/dL Albumin 2.9 g/dL Albumin/Globulin Ratio 0.8 Influenza Type A (Rapid) Negative Influenza Type B (Rapid) Negative SARS-CoV-2 Antigen (Rapid) Negative Current Medications Medications (Trade) Dose Ordered Sig/Rafael Route PRN Reason Start Time Stop Time Status Last Admin Dose Admin Sodium Chloride 1,000 ml @ 1,000 mls/hr 1X ONCE IV 09/08/21 13:30 09/08/21 14:29 DC 09/08/21 14:29 Multi-Ingredient Mouthwash/Gargle (Gi Cocktail) 20 ml 1X ONCE PO 09/08/21 13:30 09/08/21 13:31 DC 09/08/21 14:28 Methylprednisolone Sodium Succinate (SOLU-Medrol 125MG VIAL) 125 mg 1X ONCE IV 09/08/21 15:00 09/08/21 15:01 DC 09/08/21 14:59 Albuterol/ Ipratropium (Duoneb) 3 ml 1X ONCE NEB 09/08/21 15:00 09/08/21 15:01 DC 09/08/21 15:03 Midazolam HCl (Versed) 1 mg 1X ONCE IV 09/08/21 15:30 09/08/21 15:41 DC 09/08/21 16:25 Vital Signs: Vital Signs Date Time Temp Pulse Resp B/P (MAP) Pulse Ox O2 Delivery O2 Flow Rate FiO2 09/08/21 13:10 98.5 114 18 158/83 (108) 97 EKG: EKG: [] Radiology/Procedures: Radiology/Procedures: []PROCEDURE: CHEST PA & LATERAL INDICATION: Reason: chest pain, soa / Spl. Instructions: / History: COMPARISON: September 2019 FINDINGS: 2 view of chest obtained. No focal airspace consolidation. Cardiomediastinal contour unremarkable. No acute osseous abnormality. IMPRESSION: * No focal airspace consolidation or edema. Electronically signed by: Davon Ramirez MD (09/08/2021 2:27 PM) [id number] DICTATED AND SIGNED BY: DAVON RAMIREZ MD DATE: 09/08/21 1424 CC: OSCAR MEJÍA APRN; YEHUDA ESCOBAR ~ Heart Score: C/O Chest Pain: Yes HEART Score for Chest Pain: HEART Score for Chest Pain Response (Comments) Value History Slighlty/Non-Suspicious 0 Age < 45 0 Risk Factors No Risk Factors 0 Troponin < Normal Limit 0 Total 0 Risk Factors: Risk Factors: DM, Current or recent (<one month) smoker, HTN, HLP, family history of CAD, obesity. Risk Scores: Score 0 - 3: 2.5% MACE over next 6 weeks - Discharge Home Score 4 - 6: 20.3% MACE over next 6 weeks - Admit for Clinical Observation Score 7 - 10: 72.7% MACE over next 6 weeks - Early Invasive Strategies Course & Med Decision Making: Course & Med Decision Making Pertinent Labs and Imaging studies reviewed. (See chart for details) [] Patient resents to the emergency department for generalized chest pain, shortness of breath and cough. Patient reports that it feels like her airways are inflamed she is got constrictive breathing like she is breathing through a straw. Patient is on estrogen pulmonary embolism. Work-up in the ER consisted of blood work including troponin, D-dimer, chest x-ray, COVID and flu testing. Patient be treated with IV movement she is tachycardic. Patient reports a tightness in her throat that radiates through her chest, it is possible that this is caused by her eosinophilic esophagitis, therefore, she was given a GI cocktail. Patients blood work was unremarkable, she had negative troponin and negative ddimer. Chest x-ray did not show any acute findings. Patient continued to report constrictive breathing following treatment and therefore was given duoneb and steroid. She reported no improvement in symptoms and was given versed as she is visibly anxious. Her oxygen saturation is wnl. She is advised to continue to use her albuterol inhaler at home for shortness of breath. She is advised to follow up with her GI doctor regarding her esophagitis as it is a possible cause for her symptoms. I discussed with patient all findings and diagnostic testing as well as the need to follow-up with PCP for further evaluation and treatment or return to the ER if any new or worsening symptoms. Strict return precautions were also discussed at length. Patient voiced understanding and agreement with the plan. Patient is hemodynamically stable at the time of disposition. Dragon Disclaimer: Dragon Disclaimer: This electronic medical record was generated, in whole or in part, using a voice recognition dictation system. Departure Departure: Impression: Primary Impression: Shortness of breath Disposition: HOME / SELF CARE / HOMELESS Condition: GOOD Referrals: YEHUDA ESCOBAR (PCP) Patient Instructions: Shortness of Breath Additional Instructions: You are seen in the emergency department for shortness of breath. As we discussed your work-up in the ER was unremarkable. Your chest x-ray did not show any acute findings. Negative influenza and COVID testing. It is possible that your symptoms are related to your esophagitis, please follow-up with your GI doctor regarding this. Continue using your albuterol inhaler for any chest tightness or shortness of breath. Follow-up with your primary care provider tomorrow regarding your ER visit. Return to the emergency department if you develop chest pain, shortness of breath fevers refractory to treatment, or any new or worsening concerns. OSCAR MEJÍA REPAIRER AND CHECKER September 08, 2021 13:38
[2021-09-08 14:14] LABS: BASO % 1 % (0-3); EOS # 0.1 x10^3/uL (0.0-0.7); EOS % 2 % (0-3); HEMATOCRIT 36.1 % (36.0-47.0); HEMOGLOBIN 11.4 g/dL (12.0-15.5); LYMPH # 2.7 x10^3/uL (1.0-4.8); LYMPH % 36 % (24-48); MEAN CORPUSCULAR HEMOGLOBIN 25 pg (25-35); MEAN CORPUSCULAR HGB CONC 32 g/dL (31-37); MEAN CORPUSCULAR VOLUME 78 fL (79-100); MONO # 0.7 x10^3/uL (0.0-1.1); MONO % 9 % (0-9); NEUT # 4.1 x10^3uL (1.8-7.7); NEUT % 53 % (31-73); PLATELET COUNT 294 x10^3/uL (140-400); RED BLOOD COUNT 4.61 x10^6/uL (3.50-5.40); RED CELL DISTRIBUTION WIDTH 15.8 % (11.5-14.5); WHITE BLOOD COUNT 7.6 x10^3/uL (4.0-11.0)
[2021-09-08 14:28] LABS: CALCIUM 8.8 mg/dL (8.5-10.1); CREATININE 0.9 mg/dL (0.6-1.0); GFR 74.6
--- NOTE | 2021-09-08 14:29 | RAD ---
INDICATION: Reason: chest pain, soa / Spl. Instructions: / History: COMPARISON: September 2019 FINDINGS: 2 view of chest obtained. No focal airspace consolidation. Cardiomediastinal contour unremarkable. No acute osseous abnormality. IMPRESSION: * No focal airspace consolidation or edema. Electronically signed by: Eligio Ramirez MD (09/08/2021 2:27 PM) [id number]
[2021-09-08 14:34] LABS: ALBUMIN 2.9 g/dL (3.4-5.0); ALBUMIN/GLOBULIN RATIO 0.8 (1.0-1.7); TOTAL BILIRUBIN 0.1 mg/dL (0.2-1.0); TOTAL PROTEIN 6.5 g/dL (6.4-8.2)
[2021-09-08 14:42] LABS: INFLUENZA A PATIENT NEGATIVE (NEGATIVE); INFLUENZA B PATIENT NEGATIVE (NEGATIVE)
[2021-09-08] MEDS ORDERED: IPRATRPIUM/ALBUTEROL 0.5/2.5MG 3 ML NEBU. NEB ONE (15:00)
[2021-09-08] MEDS ORDERED: methylPREDNISolone SOD SUCC PF 125 MG/2 ML VIAL. IV ONE (15:00)
[2021-09-08] MEDS ORDERED: MIDAZOLAM HCL PF 5 MG/5 ML VIAL. IV ONE (15:30)
[2021-09-08 16:52] VITALS: BP 123/49
== END 2021-09-08 17:15 | disposition home or self-care (01) ==
LOC: ER 12:35
DX: R06.02 Shortness of breath (principal); R07.89 Other chest pain; R05.9 Cough, unspecified; K21.9 Gastro-esophageal reflux disease without esophagitis; Z20.822 Contact with and (suspected) exposure to COVID-19; Z88.5 Allergy status to narcotic agent; Z88.1 Allergy status to other antibiotic agents; Z88.2 Allergy status to sulfonamides; Z88.8 Allergy status to other drugs, medicaments and biological substances
CPT/HCPCS: 36415; 71046; 80053; 84484; 85025; 85379; 87428; 93005; 94640; 96361; 96374; 96375; 99285; J2250; J2930; J7030